=== PATIENT | male | born 2005 | race Caucasian/White ===

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

== ENCOUNTER → 2024-04-02 15:37 | Outpatient (BNVA) | payer BC, SELFPAY | PROVIDERS: Visit Provider Emergency Medicine | DX: I89.9 Noninfective disorder of lymphatic vessels and lymph nodes, unspecified; I88.9 Nonspecific lymphadenitis, unspecified | CPT/HCPCS: 85025; 85651; 86140; 86308 ==

== ENCOUNTER 2024-04-06 10:15 | Outpatient (CLI) | payer BC, MEDICAID, SELFPAY ==
--- NOTE | 2024-04-06 10:15 | USR_ITS ---
PROCEDURE INFORMATION: Exam: US Right Limited Joint or Other Non-Vascular Extremity Structure Exam date and time: 04/06/2024 10:24 AM Age: 19 years old Clinical indication: Lymphadenopathy; Not specified; Shoulder; Right; Additional info: Axillary adenopathy TECHNIQUE: Imaging protocol: US right limited joint or other nonvascular extremity structure. Real-time ultrasound with image documentation. Exam focused on the area of clinical interest. COMPARISON: No relevant prior studies available. FINDINGS: Soft tissues: There is an enlarged and heterogeneous appearing axillary lymph node measuring 2.5 cm in maximum dimension. The cortex is thickened and greater than 5 mm and the lymph node is abnormal. US/US soft tissue/extremity [id number] IMPRESSION: Abnormal right axillary lymph node. The findings may be due to either neoplastic or inflammatory disease.
== END 2024-04-06 10:18 | disposition home or self-care (01) ==
PROVIDERS: PCP Family Medicine; Visit Provider Emergency Medicine
DX: I88.9 Nonspecific lymphadenitis, unspecified (principal)
CPT/HCPCS: 76882

== ENCOUNTER → 2024-10-31 17:25 | Outpatient (BNVA) | payer BC, MEDICAID, SELFPAY | PROVIDERS: PCP Family Medicine; Visit Provider Registered Nurse Neonatal Intensive Care | DX: Z20.2 Contact with and (suspected) exposure to infections with a predominantly sexual mode of transmission (principal); R30.0 Dysuria | CPT/HCPCS: 81000; 87491; 87591 ==

== ENCOUNTER → 2024-11-22 14:43 | Outpatient (BNVA) | payer BC, SELFPAY | PROVIDERS: PCP Family Medicine; Visit Provider Nurse Practitioner | DX: Z20.2 Contact with and (suspected) exposure to infections with a predominantly sexual mode of transmission (principal) | CPT/HCPCS: 87491; 87591; 87661 ==

== ENCOUNTER 2024-12-26 05:22 | Inpatient (IN) | payer BC, MEDICAID, SELFPAY ==
[2024-12-26] VITALS (28 sets, daily range): BP systolic 92–143; BP diastolic 36–94; PULSE 50–102; RESP 10–31; TEMP 36.9–37.1; O2SAT 97–100; BMI 21.6
--- NOTE | 2024-12-26 05:38 | ECG_ITS ---
[facility] Test Date: 2024-12-26 Pat Name: Gurpreet Boogie Department: Room: Gender: Male Clinical Team Manager: : 2005 Requested By: Juan Fernandez Order Number: [id number] Louie MD: Spencer Malhotra M.D. Measurements Intervals [place] Rate: 81 P: 83 IA: 163 QRS: 83 QRSD: 87 T: 83 QT: 315 QTc: 366 Interpretive Statements SINUS RHYTHM WITH SINUS ARRHYTHMIA ST ELEVATION, PROBABLY EARLY REPOLARIZATION [ST ELEVATION WITH NORMALLY INFLECTED T-WAVE] Compared to ECG 07/28/2021 19:55:15 No significant change Electronically Signed On 12-26-2024 17:02:09 CDT by Spencer Malhotra M.D. [email or web address] [email or web address]
[2024-12-26 05:52] LABS: Add Urine Microscopic? NO
[2024-12-26 06:11] LABS: Hematocrit 46.1 % (37-53); Hemoglobin 15.30 g/dL (13.2-15.6); Mean Corpuscular HGB Conc 33.2 g/dL (30-55); Mean Corpuscular Hemoglobin 30.5 pg (27-33); Mean Corpuscular Volume 91.8 fl (82-101); Nucleated Red Blood Cells % 0 %; Platelet Count 167 10^3/cmm (157-399); Red Blood Count 5.02 10^6/uL (3.85-5.65); White Blood Count 8.07 10^3/uL (4.5-13.0)
--- NOTE | 2024-12-26 06:18 | W.ED.PSYCHS ---
Documented by User: Juan Esteves DO 12/26/24 16:31 HPI - Psych General: Chief Complaint: Psychiatric Symptoms Stated Complaint: SI, ETOH,OD Time Seen by Provider: 12/26/24 05:39 History of Present Illness: This 19-year-old male presents following an intentional overdose of what he believes is sertraline (Zoloft) that occurred at approximately 04:45 today. The actual medication bottle he showed EMS was valproic acid. The patient reports ingesting approximately 19-23 250mg tablets, estimating the number based on phone calls made during the incident. He describes the event as a relapse, indicating previous psychiatric episodes. The patient denies current nausea at the time of evaluation. He reports concurrent alcohol use, consuming what he describes as 'two Celsius' drinks. His last psychiatric hospitalization was when he was 11-12 years old, making this his first significant psychiatric episode in approximately 8-9 years. Related Data Previous Rx's ?Medication ?Instructions ?Recorded doxycycline hyclate 100 mg tablet 100 mg PO BID 7 days #14 tabs 11/22/24 Allergies Allergy/AdvReac Type Severity Reaction Status Date / Time risperidone Allergy Unknown Verified 11/22/24 13:24 [facility] ED PFS: Medical History (Updated 12/26/24 @ 10:50 by Sukhjinder Conde MD) Abnormal ultrasound No pertinent past medical history Family History Unknown Diabetes Cancer pancreatic and skin cancer Mother Breast cancer Grandfather Leukemia Social History Smoking and tobacco/nicotine status: never used tobacco/nicotine Substance/Drug Use: never Physical Exam Const: COMMON NORMALS: no acute distress GENERAL APPEARANCE: cooperative; not ill appearing and not frail appearing HENMT: COMMON NORMALS: normocephalic, atraumatic and Normal external nose present HEAD & SCALP: normocephalic and atraumatic FACE & SINUS: normal facial exam and face symmetric NOSE: Normal external nose present Eye: COMMON NORMALS: EOMs intact bilaterally and conjunctivae normal CONJUNCTIVA: Yes conjunctivae normal Neck/C-Spine: GENERAL: Yes trachea midline Chest: CHEST: Yes Symmetrical chest wall rise Resp: COMMON NORMALS: normal respiratory effort, No retractions, No use of accessory muscles and clear to auscultation bilaterally AUSCULTATION: clear to auscultation bilaterally Cardio: COMMON NORMALS: regular rate and regular rhythm RATE: regular rate RHYTHM: regular rhythm GI: COMMON NORMALS: Normal to inspection, nondistended, normoactive bowel sounds present Extremity: COMMON NORMALS: no pedal edema Neuro: JOANNA COMA SCALE: document GCS findings Joanna coma scale eye opening: Spontaneous Joanna coma scale verbal response: Orientated Joanna coma scale motor response: Obey commands [place] coma scale total score: 15 SENSORY EXAM: Yes extremities (intact) Psych: COMMON NORMALS: speech normal SPEECH: Yes normal speech Skin: COMMON NORMALS: no rashes or lesions noted GENERAL SKIN EXAM: no rashes or lesions noted Course Vital Signs: Vital signs: Vital Signs Temperature 98.8 F 12/26/24 05:39 Pulse Rate 50 L 12/26/24 15:14 Respiratory Rate 14 12/26/24 14:15 Blood Pressure 120/84 12/26/24 14:06 Pulse Oximetry 100 12/26/24 14:15 Oxygen Delivery Me thod Room Air 12/26/24 14:00 MDM - Psych Medical Decision Making Patient appears medically stable now. His vitals are normal heart rate 84, blood pressure 139/85 saturation 98% with 18 respiratory rate on room air. He is not lethargic. He is awake and talking. Laboratory is pending. He will be checked out to Dr. Cardozo at shift change Lab Data 12/26/24 06:01 12/26/24 06:01 Laboratory Results WBC 8.07 10^3/uL (4.5-13.0) 12/26/24 06:01 RBC 5.02 10^6/uL (3.85-5.65) 12/26/24 06:01 Hgb 15.30 g/dL (13.2-15.6) 12/26/24 06:01 Hct 46.1 % (37-53) 12/26/24 06:01 MCV 91.8 fl (82-101) 12/26/24 06:01 MCH 30.5 pg (27-33) 12/26/24 06:01 MCHC 33.2 g/dL (30-55) 12/26/24 06:01 RDW 12.1 % (12.1-15.1) 12/26/24 06:01 Plt Count 167 10^3/cmm (157-399) 12/26/24 06:01 MPV 10.5 fL (7.4-10.4) H 12/26/24 06:01 Neut % (Auto) 70.7 % 12/26/24 06:01 Lymph % (Auto) 22.3 % 12/26/24 06:01 [place] % (Auto) 6.1 % 12/26/24 06:01 Eos % (Auto) 0.5 % 12/26/24 06:01 Baso % (Auto) 0.2 % 12/26/24 06:01 Neut # (Auto) 5.70 10^3/uL (1.8-8.0) 12/26/24 06:01 Lymph # (Auto) 1.8 10^3/uL (1.5-6.5) 12/26/24 06:01 [place] # (Auto) 0.5 10^3/uL (0.2-0.9) 12/26/24 06:01 Eos # (Auto) 0.0 10^3/uL (0.0-0.8) 12/26/24 06:01 Baso # (Auto) 0.0 10^3/uL (0.0-0.1) 12/26/24 06:01 Nucleated RBC % (auto) 0 % 12/26/24 06:01 Nucleated RBCs # 0.0 /100WBC 12/26/24 06:01 Sodium 142 mmol/L (136-145) 12/26/24 06:01 Potassium 4.2 mmol/L (3.5-5.1) 12/26/24 06:01 Chloride 104 mmol/L (98-107) 12/26/24 06:01 Carbon Dioxide 26 mmol/L (22-29) 12/26/24 06:01 Anion Gap 16.2 (5-19) 12/26/24 06:01 BUN 9 mg/dL (6-20) 12/26/24 06:01 Creatinine 0.7 mg/dL (0.7-1.2) 12/26/24 06:01 GFR Calculation 143.8 mL/min (90-130) H 12/26/24 06:01 Glucose 90 mg/dL (65-115) 12/26/24 06:01 Calculated Osmolality 292 mOsm/kg (285-295) 12/26/24 06:01 Calcium 9.5 mg/dL (8.5-10.5) 12/26/24 06:01 Total Bilirubin 0.3 mg/dL (0.15-1.2) 12/26/24 06:01 AST 12 U/L (0-40) 12/26/24 06:01 ALT 11 U/L (0-41) 12/26/24 06:01 Alkaline Phosphatase 74 U/L (40-130) 12/26/24 06:01 Ammonia 30 umol/L (16-60) 12/26/24 06:01 NT-Pro-B Natriuret Pep < 36 pg/mL (0-125) 12/26/24 06:01 Total Protein 6.9 g/dL (6.6-8.7) 12/26/24 06:01 Albumin 4.8 g/dL (3.5-5.2) 12/26/24 06:01 Globulin 2.1 g/dL (1.3-4.6) 12/26/24 06:01 TSH 1.65 uIU/mL (0.27-4.20) 12/26/24 06:01 Urine Color Yellow (Yellow) 12/26/24 05:35 Urine Appearance Clear (CLEAR) 12/26/24 05:35 Urine pH 6.5 (5-7) 12/26/24 05:35 Ur Specific [place] 1.005 (1.005-1.030) 12/26/24 05:35 Urine Protein Negative (Negative) 12/26/24 05:35 Urine Glucose (UA) Negative (Normal) 12/26/24 05:35 Urine Ketones Negative (Negative) 12/26/24 05:35 Urine Blood Negative (Negative) 12/26/24 05:35 Urine Nitrate Negative (Negative) 12/26/24 05:35 Urine Bilirubin Negative (Negative) 12/26/24 05:35 Urine Urobilinogen 0.2 mg/dL (Negative) 12/26/24 05:35 Ur Leukocyte Esterase Negative (Negative) 12/26/24 05:35 Amorphous Sediment Not Reportable 12/26/24 05:35 Salicylates < 0.3 mg/dL (3-10) L 12/26/24 06:01 Urine Opiates Screen Negative ng/mL (Negative) 12/26/24 05:35 Acetaminophen < 5.0 ug/mL (10-30) L 12/26/24 06:01 Ur Barbiturates Screen Negative ng/mL (Negative) 12/26/24 05:35 Valproic Acid 46.8 ug/mL (50-100) L 12/26/24 06:01 Ur Phencyclidine Scrn Negative ng/mL (Negative) 12/26/24 05:35 Ur Amphetamines Screen Negative ng/mL (Negative) 12/26/24 05:35 U Benzodiazepines Scrn Negative ng/mL (Negative) 12/26/24 05:35 Urine Cocaine Screen Negative ng/mL (Negative) 12/26/24 05:35 U Marijuana (THC) Screen Negative ng/mL (Negative) 12/26/24 05:35 Ethyl Alcohol < 10 mg/dL (0-10) 12/26/24 06:01 Discharge Plan Discharge Patient Disposition: Admitted As Inpatient Admit Provider: Sukhjinder Conde Clinical Impression: Intentional overdose, Suicide attempt Condition: Stable Coding Level of Care Code ED Radiosonde Operator for Chg Fwd Documented by User: Isidoro Cardozo MD 12/26/24 07:57 HPI - Psych General: Chief Complaint: Psychiatric Symptoms Stated Complaint: SI, ETOH,OD Time Seen by Provider: 12/26/24 05:39 Related Data Previous Rx's ?Medication ?Instructions ?Recorded doxycycline hyclate 100 mg tablet 100 mg PO BID 7 days #14 tabs 11/22/24 Allergies Allergy/AdvReac Type Severity Reaction Status Date / Time risperidone Allergy Unknown Verified 11/22/24 13:24 PFS ED PFSH: Medical History (Updated 12/26/24 @ 10:50 by Sukhjinder Conde MD) Abnormal ultrasound No pertinent past medical history Family History Unknown Diabetes Cancer pancreatic and skin cancer Mother Breast cancer Grandfather Leukemia Social History Smoking and tobacco/nicotine status: never used tobacco/nicotine Substance/Drug Use: never Physical Exam Neuro: JOANNA COMA SCALE: document GCS findings Joanna coma scale total score: 15 Course Vital Signs: Vital signs: Vital Signs Temperature 98.8 F 12/26/24 05:39 Pulse Rate 50 L 12/26/24 15:14 Respiratory Rate 14 12/26/24 14:15 Blood Pressure 120/84 12/26/24 14:06 Pulse Oximetry 100 12/26/24 14:15 Oxygen Delivery Me thod Room Air 12/26/24 14:00 MDM - Psych Medical Decision Making Patient appears medically stable now. His vitals are normal heart rate 84, blood pressure 139/85 saturation 98% with 18 respiratory rate on room air. He is not lethargic. He is awake and talking. Laboratory is pending. He will be checked out to Dr. Cardozo at shift change Patient seen by myself at time of transfer of care. Patient sitting up in the bed alert cooperative calm. No external signs of trauma. Right pupil is larger than his left pupil. He tells me he has a lazy eye and that that is normal for him. He denies any head trauma or headache or change in vision. Denies any chest pain abdominal pain shortness of breath. He states he feels fine. He states that he made a suicide attempt this morning. He tells me that he overdosed at 4:00 in the morning on his Zoloft and states he took 19 pills. According to EMS the patient had an empty bottle of valproic acid. The patient states he is prescribed valproic acid. Unknown if this is extended release or immediate release. Patient denies any symptoms other than his depression and anxiety and suicidal ideation. Denies history of heart problems. He is breathing comfortably, abdomen soft nontender extremities warm well-perfused. His speech is clear. He does not appear sedate. I discussed with poison control again. Peak effect of valproic acid can be significantly prolonged with overdose and can be up to greater than 30 hours and duration of observation guided by valproic acid levels and can cause hyperammonia anemia, seizures, tachycardia, QT prolongation, among other symptoms. There is Zoloft PCOS 4 to 8 hours and can cause QT prolongation as well and seizures among others. EKG was ordered which shows a sinus rhythm with a rate of [address] elevation diffusely which appears more consistent with J-point elevation and patient denies any chest pain chest discomfort or history of heart disease to suggest acute NV. QT corrected is 352 and QRS is 87. Further labs are pending. Alcohol and acetaminophen and salicylate levels are not significant elevated. Valproic acid level is just less than 50. Urine drug screen is negative. Patient appears mildly sleepy but otherwise unremarkable exam. He responds to voice appropriately and interacts appropriately. Because of potential prolonged effects of valproic acid as well as Zoloft we will admit medically for further observation to the ICU. I discussed with Dr. Conde who accepts the patient and I discussed with Dr. Araiza who will consult. Lab Data 12/26/24 06:01 12/26/24 06:01 Laboratory Results WBC 8.07 10^3/uL (4.5-13.0) 12/26/24 06:01 RBC 5.02 10^6/uL (3.85-5.65) 12/26/24 06:01 Hgb 15.30 g/dL (13.2-15.6) 12/26/24 06:01 Hct 46.1 % (37-53) 12/26/24 06:01 MCV 91.8 fl (82-101) 12/26/24 06:01 MCH 30.5 pg (27-33) 12/26/24 06:01 MCHC 33.2 g/dL (30-55) 12/26/24 06:01 RDW 12.1 % (12.1-15.1) 12/26/24 06:01 Plt Count 167 10^3/cmm (157-399) 12/26/24 06:01 MPV 10.5 fL (7.4-10.4) H 12/26/24 06:01 Neut % (Auto) 70.7 % 12/26/24 06:01 Lymph % (Auto) 22.3 % 12/26/24 06:01 [place] % (Auto) 6.1 % 12/26/24 06:01 Eos % (Auto) 0.5 % 12/26/24 06:01 Baso % (Auto) 0.2 % 12/26/24 06:01 Neut # (Auto) 5.70 10^3/uL (1.8-8.0) 12/26/24 06:01 Lymph # (Auto) 1.8 10^3/uL (1.5-6.5) 12/26/24 06:01 [place] # (Auto) 0.5 10^3/uL (0.2-0.9) 12/26/24 06:01 Eos # (Auto) 0.0 10^3/uL (0.0-0.8) 12/26/24 06:01 Baso # (Auto) 0.0 10^3/uL (0.0-0.1) 12/26/24 06:01 Nucleated RBC % (auto) 0 % 12/26/24 06:01 Nucleated RBCs # 0.0 /100WBC 12/26/24 06:01 Sodium 142 mmol/L (136-145) 12/26/24 06:01 Potassium 4.2 mmol/L (3.5-5.1) 12/26/24 06:01 Chloride 104 mmol/L (98-107) 12/26/24 06:01 Carbon Dioxide 26 mmol/L (22-29) 12/26/24 06:01 Anion Gap 16.2 (5-19) 12/26/24 06:01 BUN 9 mg/dL (6-20) 12/26/24 06:01 Creatinine 0.7 mg/dL (0.7-1.2) 12/26/24 06:01 GFR Calculation 143.8 mL/min (90-130) H 12/26/24 06:01 Glucose 90 mg/dL (65-115) 12/26/24 06:01 Calculated Osmolality 292 mOsm/kg (285-295) 12/26/24 06:01 Calcium 9.5 mg/dL (8.5-10.5) 12/26/24 06:01 Total Bilirubin 0.3 mg/dL (0.15-1.2) 12/26/24 06:01 AST 12 U/L (0-40) 12/26/24 06:01 ALT 11 U/L (0-41) 12/26/24 06:01 Alkaline Phosphatase 74 U/L (40-130) 12/26/24 06:01 Ammonia 30 umol/L (16-60) 12/26/24 06:01 NT-Pro-B Natriuret Pep < 36 pg/mL (0-125) 12/26/24 06:01 Total Protein 6.9 g/dL (6.6-8.7) 12/26/24 06:01 Albumin 4.8 g/dL (3.5-5.2) 12/26/24 06:01 Globulin 2.1 g/dL (1.3-4.6) 12/26/24 06:01 TSH 1.65 uIU/mL (0.27-4.20) 12/26/24 06:01 Urine Color Yellow (Yellow) 12/26/24 05:35 Urine Appearance Clear (CLEAR) 12/26/24 05:35 Urine pH 6.5 (5-7) 12/26/24 05:35 Ur Specific [place] 1.005 (1.005-1.030) 12/26/24 05:35 Urine Protein Negative (Negative) 12/26/24 05:35 Urine Glucose (UA) Negative (Normal) 12/26/24 05:35 Urine Ketones Negative (Negative) 12/26/24 05:35 Urine Blood Negative (Negative) 12/26/24 05:35 Urine Nitrate Negative (Negative) 12/26/24 05:35 Urine Bilirubin Negative (Negative) 12/26/24 05:35 Urine Urobilinogen 0.2 mg/dL (Negative) 12/26/24 05:35 Ur Leukocyte Esterase Negative (Negative) 12/26/24 05:35 Amorphous Sediment Not Reportable 12/26/24 05:35 Salicylates < 0.3 mg/dL (3-10) L 12/26/24 06:01 Urine Opiates Screen Negative ng/mL (Negative) 12/26/24 05:35 Acetaminophen < 5.0 ug/mL (10-30) L 12/26/24 06:01 Ur Barbiturates Screen Negative ng/mL (Negative) 12/26/24 05:35 Valproic Acid 46.8 ug/mL (50-100) L 12/26/24 06:01 Ur Phencyclidine Scrn Negative ng/mL (Negative) 12/26/24 05:35 Ur Amphetamines Screen Negative ng/mL (Negative) 12/26/24 05:35 U Benzodiazepines Scrn Negative ng/mL (Negative) 12/26/24 05:35 Urine Cocaine Screen Negative ng/mL (Negative) 12/26/24 05:35 U Marijuana (THC) Screen Negative ng/mL (Negative) 12/26/24 05:35 Ethyl Alcohol < 10 mg/dL (0-10) 12/26/24 06:01 No radiology studies performed this visit Discharge Plan Discharge Patient Disposition: Admitted As Inpatient Admit Provider: Sukhjinder Conde Clinical Impression: Intentional overdose, Suicide attempt Condition: Stable Coding Level of Care Code ED Radiosonde Operator for Joanna Padron
[2024-12-26 06:26] LABS: Ammonia 30 umol/L (16-60)
[2024-12-26 06:26] LABS: Glucose Urine UA Negative (Normal); Nitrate Urine Negative (Negative); Specific Gravity, Urine 1.005 (1.005-1.030)
[2024-12-26 06:33] LABS: PCP Screen Urine Negative (Negative)
--- NOTE | 2024-12-26 06:39 | PC.NURSE ---
patients contact numbers Kalia Dillard Y - [phone] P [phone] [facility] [phone]
[2024-12-26 06:53] LABS: Charge for UA Resulting for Rev
--- NOTE | 2024-12-26 07:09 | PC.NURSE ---
PT REQUESTED THIS NURSE TO CALL HIS EMERGENCY CONTACT AT 0700 TO UPDATE HER ON WHAT HAPPENED. THIS NURSE ATTEMPTED TO CALL HIS MOTHER. NO ANSWER. PT NOTIFIED.
[2024-12-26 07:44] LABS: Alanine Aminotransferase 11 U/L (0-41); Albumin Level 4.8 g/dL (3.5-5.2); Alkaline Phosphatase 74 U/L (40-130); Anion Gap 16.2 (5-19); Aspartate Amino Transferase 12 U/L (0-40); Blood Urea Nitrogen 9 mg/dL (6-20); Calcium 9.5 mg/dL (8.5-10.5); Carbon Dioxide 26 mmol/L (22-29); Chloride 104 mmol/L (98-107); Globulin 2.1 g/dL (1.3-4.6); Glucose 90 mg/dL (65-115); Osmolality Calculated 292 mOsm/kg (285-295); Potassium 4.2 mmol/L (3.5-5.1); Sodium 142 mmol/L (136-145); Thyroid Stimulating Hormone 1.65 uIU/mL (0.27-4.20); Total Protein 6.9 g/dL (6.6-8.7)
[2024-12-26 07:50] LABS: Acetaminophen < 5.0 ug/mL (10-30); Alcohol Level < 10 mg/dL (0-10); Salicylate < 0.3 mg/dL (3-10)
[2024-12-26 07:51] LABS: Creatinine Clr Calc Pharmacy 174.5305
--- NOTE | 2024-12-26 07:53 | PC.NURSE ---
POISON CONTROLLED UPDATED. SERIAL VALPROIC ACID SUGGESTED EVERY 4-6 HOURS.
--- NOTE | 2024-12-26 08:03 | ECG_ITS ---
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 Measurements Intervals [place] Rate: 58 P: 48 [place]: 143 QRS: 72 QRSD: 96 T: 63 QT: 362 QTc: 356 Interpretive Statements SINUS BRADYCARDIA EARLY REPOLARIZATION [ST ELEVATION WITH NORMALLY INFLECTED T-WAVE] Compared to ECG 12/26/2024 05:54:23 Sinus arrhythmia no longer present Electronically Signed On 12-26-2024 17:03:36 CDT by Spencer Malhotra M.D. [id number] [id number]
--- NOTE | 2024-12-26 10:34 | P.HP_ITS ---
Providers/Chief Complaint 2 Admitting Physician: Sukhjinder Conde MD Primary Care Provider: Kevin Ornelas MD Chief Complaint: SI, ETOH,OD History of Present Illness Gurpreet Boogie is a 19 year old male with past medical history of seizure, depression, onset, valproic acid, who presents for intentional drug overdose, suicide attempt. Currently patient is alert oriented x 3, can follow commands, but falls back during our conversations, he does report alcohol use, does report consuming Celsius, denies any other drug use, does report attempt to kill himself by taking a valproic acid, sertraline, but does not know how many he took he is not even exactly sure if he took them or not, denies taking any other medications, he lives at home with his 2 parents, Review of Systems 2 Const: Denies: fever(s) Card: Denies: chest pain Resp: Denies: dyspnea GI: Denies: abdominal pain Neuro: Denies: headache(s) Medications/Allergies Home Medications ?Medication ?Instructions ?Recorded ?Confirmed ?Last Taken ?Type doxycycline hyclate 100 mg tablet 100 mg PO BID 7 days #14 tabs 11/22/24 11/22/24 Unknown Rx Allergies Allergy/AdvReac Type Severity Reaction Status Date / Time risperidone Allergy Unknown Verified 11/22/24 13:24 PFSH Acute 2 PFSH: Medical History Abnormal ultrasound No pertinent past medical history Family History Unknown Diabetes Cancer pancreatic and skin cancer Mother Breast cancer Grandfather Leukemia Social History Smoking and tobacco/nicotine status: never used tobacco/nicotine Substance/Drug Use: never Vitals/I&O/Wt Last Vital Signs Temp 98.8 F 12/26/24 05:39 Pulse 57 L 12/26/24 09:30 Resp 16 12/26/24 08:30 BP 106/68 12/26/24 09:30 Pulse Ox 97 12/26/24 09:30 O2 Del Method Room Air 12/26/24 09:30 12/25/24 12/26/24 12/26/24 22:59 06:59 14:59 Intake Total 1000 / 1000 Balance 1000 / 1000 Weight last 48 hrs Weight 70.307 kg Physical Exam 2 Const: COMMON NORMALS: no acute distress ORIENTATION/CONSCIOUSNESS: Yes awake, Yes oriented to person, Yes oriented to place and Yes oriented to time HENMT: COMMON NORMALS: normocephalic HEAD & SCALP: normocephalic Eye: COMMON NORMALS: Equal, round and reactive pupils present Neck/C-Spine: COMMON NORMALS: no JVD Lymph: LYMPHATIC: no lymphadenopathy noted Resp: COMMON NORMALS: normal respiratory effort, No retractions, No use of accessory muscles and clear to auscultation bilaterally AUSCULTATION: clear to auscultation bilaterally Cardio: COMMON NORMALS: no JVD, regular rate, regular rhythm, S1 normal heart sound present and S2 normal heart sound present RATE: regular rate RHYTHM: regular rhythm HEART SOUNDS: S1 normal heart sound present and S2 normal heart sound present GI: COMMON NORMALS: Normal to inspection, nondistended, normoactive bowel sounds present, Soft to palpation and non-tender Extremity: COMMON NORMALS: no calf tenderness and no pedal edema Neuro: COMMON NORMALS: patient oriented x3, CN's II-XII intact bilaterally and moves all extremities Psych: COMMON NORMALS: mental status grossly normal Data 12/26/24 06:01 12/26/24 06:01 A&P Assessment and plan 1. Intentional overdose: 2. Suicide attempt: 3. Poisoning by valproic acid: Plan: Intentional drug overdose, suicide attempt - Sertraline -Depakote - Denies seeing or hearing things are not there - Denies any other drug use - Does report using Celsius drinks -Does report alcohol consumption Plan - Monitor ammonia levels - Monitor Depakote levels - Monitor EKG - Advance to clears - Telemetry monitoring - Monitor neurologic status closely - 96-hour hold ordered by ER - ER will contact Dr. Araiza - Once clinically stable can move to n.p.u - Full code - Lovenox for DVT prophylaxis PDMP PDMP Reviewed: Not Reviewed Attestations 2 Medical Necessity Statement*: Patient requires hospitalization, inpatient, greater than 2 midnights, intentional drug overdose, suicide attempt Diagnoses Intentional overdose T50.902A Suicide attempt T14.91XA Poisoning by valproic acid T42.6X1A
[2024-12-26 11:05] LABS: NT Pro B Type Natriuretic Pept < 36 pg/mL (0-125)
--- NOTE | 2024-12-26 11:09 | PC.PHAR ---
I spoke to [facility] and Patient has had a Doxycline called in on November 22 and Patient did not pick it up. Last RX for 250 Divelaprex was picked up August 06 #30 for a 30 days supply . Patient also picked up Trazadone 50 , 30 days supply on the same date . No other Pharmacies were listed. Will try adn speak to Patient when he wakes up and is able to speak to me.
--- NOTE | 2024-12-26 14:05 | PC.NURSE ---
96 hr rights reviewed with pt @0800 with assistance of [facility] radiological defense officer Robb Lerma All education reviewed with pt at this time. Pt verbalized understanding to hold parameters. Pt copy was left with pt @bedside. Pt declined wanting a beverage when asked. No further needs
[2024-12-26 15:01] LABS: Ammonia 42 umol/L (16-60)
[2024-12-26 15:07] LABS: Cholesterol 108 mg/dL (0-200); HDL Cholesterol 27 mg/dL (60-100); Thyroid Stimulating Hormone 0.99 uIU/mL (0.27-4.20); Triglycerides 36 mg/dL (0-150)
--- NOTE | 2024-12-26 15:10 | ECG_ITS ---
[facility] Test Date: 2024-12-26 Pat Name: Gurpreet Boogie Department: Room: [facility]02 Gender: Male Director Case: : 2005 Requested By: Sukhjinder Conde Order Number: [id number] Louie MD: Spencer Malhotra M.D. Measurements Intervals [place] Rate: 51 P: 52 NE: 150 QRS: 72 QRSD: 98 T: 63 QT: 383 QTc: 353 Interpretive Statements SINUS BRADYCARDIA WITH SINUS ARRHYTHMIA EARLY REPOLARIZATION [ST ELEVATION WITH NORMALLY INFLECTED T-WAVE] Compared to ECG 12/26/2024 08:03:30 No significant changes Electronically Signed On 12-26-2024 18:09:26 CDT by Spencer Malhotra M.D. [email or web address] [id number]
[2024-12-26 15:27] LABS: Estmated Average Glucose 91; Hemoglobin A1C 4.8 % (4.0-6.0)
[2024-12-26 20:02] LABS: Ammonia 180 umol/L (16-60)
--- NOTE | 2024-12-26 20:15 | ECG_ITS ---
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 Measurements Intervals [place] Rate: 65 P: 61 [place]: 162 QRS: 72 QRSD: 89 T: 64 QT: 356 QTc: 371 Interpretive Statements SINUS RHYTHM WITH SINUS ARRHYTHMIA EARLY REPOLARIZATION [ST ELEVATION WITH NORMALLY INFLECTED T-WAVE] Compared to ECG 12/26/2024 15:10:41 Sinus bradycardia no longer present Electronically Signed On 12-27-2024 13:47:13 CDT by Spencer Malhotra M.D. [id number] [id number]
--- NOTE | 2024-12-26 23:12 | PC.NURSE ---
Poison control called for update on pt status/current vitals signs. Poison control recommendation is to continue with Q6H ammonia levels and valproic acid levels.
[2024-12-27] VITALS (24 sets, daily range): BP systolic 95–145; BP diastolic 54–85; PULSE 56–81; RESP 12–22; TEMP 36.3–37.1; O2SAT 91–100
--- NOTE | 2024-12-27 02:28 | ECG_ITS ---
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 Measurements Intervals [place] Rate: 64 P: 47 [place]: 144 QRS: 69 QRSD: 87 T: 69 QT: 369 QTc: 381 Interpretive Statements SINUS RHYTHM EARLY REPOLARIZATION [ST ELEVATION WITH NORMALLY INFLECTED T-WAVE] Compared to ECG 12/26/2024 20:24:41 Sinus arrhythmia no longer present Electronically Signed On 01-01-2025 09:52:13 CDT by Conor Dickey M.D. [id number] [id number]
[2024-12-27 02:59] LABS: Ammonia 50 umol/L (16-60)
[2024-12-27 04:22] LABS: Hematocrit 44.5 % (37-53); Hemoglobin 14.50 g/dL (13.2-15.6); Mean Corpuscular HGB Conc 32.6 g/dL (30-55); Mean Corpuscular Hemoglobin 30.4 pg (27-33); Mean Corpuscular Volume 93.3 fl (82-101); Nucleated Red Blood Cells % 0 %; Platelet Count 163 10^3/cmm (157-399); Red Blood Count 4.77 10^6/uL (3.85-5.65); White Blood Count 6.82 10^3/uL (4.5-13.0)
[2024-12-27 04:41] LABS: Alanine Aminotransferase 9 U/L (0-41); Albumin Level 4.2 g/dL (3.5-5.2); Alkaline Phosphatase 61 U/L (40-130); Anion Gap 10.6 (5-19); Aspartate Amino Transferase 9 U/L (0-40); Blood Urea Nitrogen 8 mg/dL (6-20); Calcium 9.0 mg/dL (8.5-10.5); Carbon Dioxide 26 mmol/L (22-29); Chloride 103 mmol/L (98-107); Creatinine Clr Calc Pharmacy 174.5305; Globulin 2.1 g/dL (1.3-4.6); Glucose 87 mg/dL (65-115); Magnesium 2.1 mg/dL (1.7-2.3); Osmolality Calculated 278 mOsm/kg (285-295); Potassium 4.6 mmol/L (3.5-5.1); Sodium 135 mmol/L (136-145); Total Protein 6.3 g/dL (6.6-8.7)
--- NOTE | 2024-12-27 08:15 | ECG_ITS ---
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 Measurements Intervals [place] Rate: 56 P: 50 [place]: 150 QRS: 70 QRSD: 95 T: 60 QT: 371 QTc: 361 Interpretive Statements SINUS BRADYCARDIA EARLY REPOLARIZATION [ST ELEVATION WITH NORMALLY INFLECTED T-WAVE] Compared to ECG 12/27/2024 02:28:12 Sinus rhythm no longer present Electronically Signed On 01-01-2025 09:51:17 CDT by Conor Dickey M.D. [id number]
[2024-12-27 08:30] LABS: Ammonia 71 umol/L (16-60)
--- NOTE | 2024-12-27 12:28 | P.PN_ITS ---
Subjective 2 Subjective: Chart reviewed. Patient denies any new complaints today. He is awake alert oriented x 3. Has been able to urinate. Following all commands. Valproic level at 40 today. Ammonia level at 71, down from 180 Medications: Reviewed: Yes Vitals/I&O/Wt Last Vital Signs Temp 97.4 F L 12/27/24 10:33 Pulse 77 12/27/24 10:33 Resp 16 12/27/24 10:33 BP 145/85 12/27/24 10:33 Pulse Ox 100 12/27/24 10:33 O2 Del Method Room Air 12/27/24 10:35 12/26/24 12/27/24 12/27/24 22:59 06:59 14:59 Intake Total 1490 / 1490 / 1969 1240 / 1240 Balance 1490 / 1490 / 1969 1240 / 1240 Weight last 48 hrs Weight 70.307 kg Physical Exam 2 Narrative: General: No acute distress, AO x3 HEENT: PERRLA, pupils bilaterally equal and reactive, pallors not present Chest: Normal vesicular breath sounds, no added sounds, equal good air entry bilaterally CVS: S1-S2 regular, no murmurs, no tachycardia, no gallops, no rubs Abdomen: Soft, nontender, no organomegaly, bowel sounds present Neuro: No focal deficits, no facial deformity, AO x3, power 5/5 in all limbs, no asterexis Data 12/27/24 03:58 12/27/24 03:58 A&P Assessment and plan 1. Intentional overdose: 2. Suicide attempt: 3. Poisoning by valproic acid: Plan: Intentional drug overdose, suicide attempt - Sertraline -Depakote - Denies seeing or hearing things are not there - Denies any other drug use - Does report using Celsius drinks -Does report alcohol consumption Plan - Monitor ammonia levels - Monitor Depakote levels - Monitor EKG - Advance to clears - Telemetry monitoring - Monitor neurologic status closely - 96-hour hold ordered by ER - ER will contact Dr. Araiza - Once clinically stable can move to n.p.u - Full code - Lovenox for DVT prophylaxis December 27, 2024 Chart reviewed. Patient denies any new complaints. Denies any chest pain dyspnea palpitations syncope. No focal deficits on neurological exam. Maintaining hemodynamics. Normal blood pressure and pulse rate. Valproic level at 40 today. Ammonia level at 71, down from 150 previously. Will add lactulose 10 mg p.o. twice daily to be titrated to 2-3 bowel movements per day. Check ammonia with a.m. labs. Patient stable to be transferred from ICU to neuro psychiatric unit PDMP PDMP Reviewed: Not Reviewed Attestations 2 Medical Necessity Statement*: Patient stable for transfer to neuro psychiatry unit today Coding Level of Care Code Acute Code for Chg Fwd Moderate MDM includes number and complexity of problems actively addressed during encounter, amount and/or complexity of data reviewed/ordered and described risk of complication, morbidity or mortality of management as documented Diagnoses Intentional overdose T50.902A Suicide attempt T14.91XA Poisoning by valproic acid T42.6X1A
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
[2024-12-27] MEDS: lactulose oral liq 20 gm/30 mL UDC 10 GM PO (22:04)
[2024-12-27] MEDS: divalproex Sprinkles 125 mg Capsule PO (22:05)
[2024-12-28 06:00] VITALS: BP 117/76; PULSE 73; RESP 17; TEMP 37; O2SAT 99
[2024-12-28 08:58] LABS: Alanine Aminotransferase 9 U/L (0-41); Albumin Level 4.8 g/dL (3.5-5.2); Alkaline Phosphatase 76 U/L (40-130); Anion Gap 15.0 (5-19); Aspartate Amino Transferase 11 U/L (0-40); Blood Urea Nitrogen 8 mg/dL (6-20); Calcium 9.4 mg/dL (8.5-10.5); Carbon Dioxide 28 mmol/L (22-29); Chloride 100 mmol/L (98-107); Creatinine Clr Calc Pharmacy 203.6189; Globulin 2.4 g/dL (1.3-4.6); Glucose 76 mg/dL (65-115); Osmolality Calculated 285 mOsm/kg (285-295); Potassium 4.0 mmol/L (3.5-5.1); Sodium 139 mmol/L (136-145); Total Protein 7.2 g/dL (6.6-8.7)
[2024-12-28 08:59] LABS: Ammonia 33 umol/L (16-60)
[2024-12-28 14:00] VITALS: BP 143/95; PULSE 93; RESP 18; TEMP 37.3; O2SAT 95
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
[2024-12-28 19:57] VITALS: BP 140/85; PULSE 85; RESP 18; TEMP 37.1; O2SAT 99
[2024-12-28] MEDS: lactulose oral liq 20 gm/30 mL UDC 10 GM PO (20:13)
[2024-12-28] MEDS: divalproex Sprinkles 125 mg Capsule PO (20:14)
--- NOTE | 2024-12-29 01:59 | PC.NURSE ---
pt personal items pt would like a privilege order for personal hygiene products.
--- NOTE | 2024-12-29 05:24 | PC.NURSE ---
SLEEP PATIENT WAS AWAKE TIL AFTER MIDNIGHT CONVERSING WITH HIS ROOMMATE. BOTH WENT TO SLEEP SHORTLY AFTER.
[2024-12-29 06:00] VITALS: RESP 16
[2024-12-29 08:12] LABS: Alanine Aminotransferase 10 U/L (0-41); Albumin Level 4.8 g/dL (3.5-5.2); Alkaline Phosphatase 75 U/L (40-130); Anion Gap 13.1 (5-19); Aspartate Amino Transferase 12 U/L (0-40); Blood Urea Nitrogen 8 mg/dL (6-20); Calcium 9.3 mg/dL (8.5-10.5); Carbon Dioxide 30 mmol/L (22-29); Chloride 102 mmol/L (98-107); Creatinine Clr Calc Pharmacy 174.5305; Globulin 2.3 g/dL (1.3-4.6); Glucose 90 mg/dL (65-115); Osmolality Calculated 290 mOsm/kg (285-295); Potassium 4.1 mmol/L (3.5-5.1); Sodium 141 mmol/L (136-145); Total Protein 7.1 g/dL (6.6-8.7)
[2024-12-29] MEDS: lactulose oral liq 20 gm/30 mL UDC 10 GM PO ×2 (10:12→21:57)
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
[2024-12-29 14:00] VITALS: BP 152/75; PULSE 86; RESP 17; TEMP 36.7; O2SAT 99
[2024-12-29 19:35] VITALS: BP 144/93; PULSE 83; RESP 18; TEMP 36.8; O2SAT 97
[2024-12-29] MEDS: divalproex Sprinkles 125 mg Capsule PO (20:35)
--- NOTE | 2024-12-30 03:43 | PC.NURSE ---
PATIENTS PRIVILEGES Per Dr Araiza, pt may wear his lock cap during the day and hand it back at night. Pts lock cap is located in his belongings
[2024-12-30 06:00] VITALS: RESP 16
[2024-12-30] MEDS: lactulose oral liq 20 gm/30 mL UDC 10 GM PO (11:00)
[2024-12-30 13:54] VITALS: BP 142/92; PULSE 81; RESP 16; TEMP 37.1; O2SAT 98
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
--- NOTE | 2024-12-30 19:19 | PC.NURSE ---
12/30/24 1100 Ns staff had to remind Gurpreet et another female patient that they were standing et socializing too close to one another. Another staff member reported mentioning it at group as well.
[2024-12-30 20:25] VITALS: BP 119/82; PULSE 76; RESP 18; TEMP 36.9; O2SAT 100
[2024-12-30] MEDS: divalproex Sprinkles 125 mg Capsule PO (20:31)
[2024-12-31 06:00] VITALS: BP 115/79; PULSE 73; RESP 17; TEMP 36.6; O2SAT 99
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
[2024-12-31 14:00] VITALS: BP 129/88; PULSE 82; RESP 16; TEMP 36.3; O2SAT 97
[2024-12-31] MEDS: divalproex Sprinkles 125 mg Capsule PO (20:07)
[2024-12-31 20:11] VITALS: BP 135/89; PULSE 68; RESP 20; TEMP 36.6; O2SAT 98
[2025-01-01 14:00] VITALS: BP 114/70; PULSE 66; RESP 16; TEMP 36.8; O2SAT 99
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
[2025-01-01 19:59] VITALS: RESP 18
--- NOTE | 2025-01-01 19:59 | PC.NURSE ---
Patient refused nurse notified
[2025-01-01] MEDS: divalproex Sprinkles 125 mg Capsule 250 MG PO (21:12)
[2025-01-02 14:00] VITALS: BP 128/83; PULSE 78; RESP 16; TEMP 37.2; O2SAT 98
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
[2025-01-02 20:00] VITALS: BP 144/92; PULSE 88; RESP 20; TEMP 36.8; O2SAT 98
[2025-01-02] MEDS: divalproex Sprinkles 125 mg Capsule 250 MG PO (20:22)
[2025-01-02] MEDS: haloperidol inj 5 mg/mL INJ 1 mL IM (20:49)
[2025-01-02] MEDS: LORazepam 1 MG/0.5 ML injection 2 MG IM (20:49)
[2025-01-02] MEDS: diphenhydrAMINE 50 mg/mL SDV 1mL IM (20:50)
--- NOTE | 2025-01-03 03:45 | PC.NURSE ---
pt behavior this nurse had a lengthy conversation with pt regarding his disruptive behavior on the unit. pt agreed to receive medication at that time. no further issues noted.
--- NOTE | 2025-01-03 04:12 | PC.NURSE ---
@1910 this typewriter aligner and Nurse Mavis where doing contraband checks on the unit, we pulled back bed 127-2 and discovered approximately 4 pills between the bed and the wall. We are unsure when the pills got there or who they where from, notified charge nurse and community outreach specialist Mary OVIEDO.
--- NOTE | 2025-01-03 06:29 | PC.NURSE ---
pt refused vs nurse notified resp 16
--- NOTE | 2025-01-03 09:13 | PC.NURSE ---
Pt. was moved to room 150-1 d/t the need to rearrange rooms for other pt.'s d/t conflicts not related to this pt. This pt. refused to change rooms when asked by a couple staff member. Security had to come to the room and tell pt. that he was moving to another room. Pt. was verbally argumentative to security, but walked willingly to the other room in 150-1.
[2025-01-03 13:26] LABS: PCP Screen Urine Negative (Negative)
[2025-01-03 14:00] VITALS: BP 127/86; PULSE 75; RESP 18; TEMP 36.8; O2SAT 99
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
[2025-01-03] MEDS: divalproex Sprinkles 125 mg Capsule 250 MG PO (20:23)
[2025-01-03] MEDS: LORazepam 1 MG/0.5 ML injection 2 MG IM (20:27)
[2025-01-03 21:54] VITALS: BP 134/88; PULSE 75; RESP 17; TEMP 37.1; O2SAT 98
[2025-01-04 13:26] VITALS: BP 131/88; PULSE 76; RESP 16; TEMP 36.8; O2SAT 95
[2025-01-04 14:28] VITALS: BP 131/88; PULSE 76; RESP 16; TEMP 36.8; O2SAT 100
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
== END 2025-01-04 15:30 | disposition home or self-care (01) | DRG 918 ==
LOC: ER 07:53 → ICU 13:23 → NP 12-27 10:28
PROVIDERS: Student in an Organized Health Care Education/Training Program; Admitting Provider Family Medicine; Emergency Provider Emergency Medicine; PCP Family Medicine; Visit Provider Psychiatry & Neurology Psychiatry
DX: T42.6X2A Poisoning by other antiepileptic and sedative-hypnotic drugs, intentional self-harm, initial encounter (principal); F33.2 Major depressive disorder, recurrent severe without psychotic features; F41.9 Anxiety disorder, unspecified; F43.10 Post-traumatic stress disorder, unspecified; F17.290 Nicotine dependence, other tobacco product, uncomplicated; Z91.51 Personal history of suicidal behavior; Z81.8 Family history of other mental and behavioral disorders
CPT/HCPCS: 36415; 80053; 80061; 80164; 80306; 80307; 81003; 82140; 83036; 83735; 83880; 84100; 84443; 85025; 90935; 93005; 96372; 97150; 97165; 99285; J1200; J1630; J2060; J7030; J9999

== ENCOUNTER 2025-01-10 23:27 | Inpatient (IN) | payer BC, MEDICAID, SELFPAY ==
[2025-01-10 23:31] VITALS: BP 120/81; PULSE 85; RESP 17; TEMP 36.9; O2SAT 95; BMI 20.9
--- NOTE | 2025-01-10 23:31 | XRR_ITS ---
PROCEDURE INFORMATION: Exam: XR Chest Exam date and time: 01/10/2025 11:43 PM Age: 19 years old Clinical indication: Other: Overdose; Additional info: Intentional overdose TECHNIQUE: Imaging protocol: Radiologic exam of the chest. Views: 1 view. COMPARISON: CR XR shoulder LT min 2V* [id number] 07/28/2021 7:36 PM FINDINGS: Lungs: No confluent consolidation. Pleural spaces: No pleural effusion. No pneumothorax is seen. Heart/Mediastinum: The heart is normal in size. Mediastinal contours are within normal limits. Bones/joints: No lytic or blastic lesions. No acute osseous abnormality. Intraperitoneal space: No free air is seen under the diaphragm. XR/XR chest 1V portable [id number] IMPRESSION: No acute pulmonary process.
--- NOTE | 2025-01-10 23:35 | ECG_ITS ---
[facility] Date: 2025-01-10 Pat Name: Gurpreet Boogie Department: Room: Gender: Male Headmaster/Mistress: : 2005 Requested By: Mike Aranda Order Number: [id number] Jacy MD: Jarek Duarte M.D. Measurements Intervals Cascade Rate: 84 P: 72 LA: 179 QRS: 73 QRSD: 85 T: 49 QT: 320 QTc: 380 Interpretive Statements SINUS RHYTHM POSSIBLE LEFT ATRIAL ENLARGEMENT [-0.1mV P-WAVE IN V1/V2] NONSPECIFIC T-WAVE ABNORMALITY Compared to ECG 12/27/2024 08:38:08 T-wave abnormality now present Sinus bradycardia no longer present Early repolarization no longer present Electronically Signed On 01-11-2025 21:40:02 CDT by Jarek Duarte M.D. [email or web address]
--- NOTE | 2025-01-10 23:54 | W.ED.OVERDOS ---
HPI - Overdose General: Chief Complaint: Overdose Stated Complaint: overdose,si Time Seen by Provider: 01/10/25 23:31 History of Present Illness: 19-year-old male brought into the emergency room by EMS after taking multiple medications overdose attempt to harm himself Lophlex to accompany them and provide affidavits. He had taken 6 500 mg Depakote 2350 mg Zoloft 18 20 mg propranolol. He has also been drinking. Patient states he regularly takes 8-10 propranolol per day. He is able to do this because he gets 90 per refill. He is not able to quantify for how long he has been doing them. Patient has had previous hospitalizations for suicide attempts he says the last 1 about 8 to 9 years ago. Related Data Previous Rx's ?Medication ?Instructions ?Recorded divalproex 500 mg tablet,extended 500 mg PO 0900 #30 tabs 01/04/25 release 24 hr (Depakote ER) propranolol 20 mg tablet 20 mg PO TID #90 tabs 01/04/25 sertraline 50 mg tablet 50 mg PO DAILY 30 days #30 tabs 01/04/25 Allergies Allergy/AdvReac Type Severity Reaction Status Date / Time risperidone Allergy Unknown Verified 11/22/24 13:24 Review of Systems Const: Denies: fever(s) or chills Card: Denies: chest pain Resp: Denies: dyspnea GI: Denies: abdominal pain : Denies: dysuria, urinary frequency or urinary urgency Musc: Denies: neck pain or back pain Skin/Breast: Denies: rash [facility] PFSH: Medical History Abnormal ultrasound No pertinent past medical history Family History Unknown Diabetes Cancer pancreatic and skin cancer Mother Breast cancer Grandfather Leukemia Social History Smoking and tobacco/nicotine status: never used tobacco/nicotine Substance/Drug Use: never Physical Exam Const: GENERAL APPEARANCE: cooperative ORIENTATION/CONSCIOUSNESS: Yes awake, Yes oriented to person, Yes oriented to place and Yes oriented to time HENMT: COMMON NORMALS: normocephalic, atraumatic and hearing grossly normal bilaterally HEAD & SCALP: normocephalic and atraumatic Resp: COMMON NORMALS: normal respiratory effort, No retractions, No use of accessory muscles and clear to auscultation bilaterally AUSCULTATION: clear to auscultation bilaterally Cardio: COMMON NORMALS: regular rate, regular rhythm and No murmurs present (Cardio) RATE: regular rate RHYTHM: regular rhythm GI: COMMON NORMALS: Soft to palpation and No hepatosplenomegaly present AUSCULTATION: Yes normoactive bowel sounds PALPATION: Yes Soft to palpation, No Tenderness to palpation present (GI), No Guarding due to palpation present (GI) and Yes No hepatosplenomegaly present Extremity: COMMON NORMALS: normal to inspection, capillary refill normal, no clubbing, cyanosis or edema, no calf tenderness and no pedal edema Neuro: SENSORIUM/ORIENTATION: Yes oriented to person, Yes oriented to place and Yes oriented to time Skin: COMMON NORMALS: no rashes or lesions noted GENERAL SKIN EXAM: no rashes or lesions noted Course Vital Signs: Vital signs: Vital Signs Temperature 99.1 F 01/11/25 04:00 Pulse Rate 70 01/11/25 04:04 Respiratory Rate 17 01/11/25 04:00 Blood Pressure 118/79 01/11/25 04:00 Pulse Oximetry 95 01/11/25 04:00 Oxygen Delivery Me thod Room Air 01/11/25 04:00 MDM - Overdose Medical Decision Making Discussed with hospitalist send discussed with psychiatry given the large amount of beta-alfredo to take will monitor the patient in the ICU overnight. Patient based on 96-hour hold consider transfer to MPU when appropriate Dr. Araiza has agreed to follow along with the patient until they are ready to be transferred to the MPU. Medical Records I reviewed the patient's medical records. Lab Data I reviewed the patient's lab results. 01/11/25 04:14 01/11/25 04:14 Radiology Impressions Chest X-Ray 01/10/25 23:31 IMPRESSION: No acute pulmonary process. Laboratory Results WBC 14.00 10^3/uL (4.5-13.0) H 01/10/25 23:54 RBC 5.62 10^6/uL (3.85-5.65) 01/10/25 23:54 Hgb 17.40 g/dL (13.2-15.6) H 01/10/25 23:54 Hct 51.6 % (37-53) 01/10/25 23:54 MCV 91.8 fl (82-101) 01/10/25 23:54 MCH 31.0 pg (27-33) 01/10/25 23:54 MCHC 33.7 g/dL (30-55) 01/10/25 23:54 RDW 12.4 % (12.1-15.1) 01/10/25 23:54 Plt Count 232 10^3/cmm (157-399) 01/10/25 23:54 MPV 10.9 fL (7.4-10.4) H 01/10/25 23:54 Neut % (Auto) 73.3 % 01/10/25 23:54 Lymph % (Auto) 16.9 % 01/10/25 23:54 Day % (Auto) 7.8 % 01/10/25 23:54 Eos % (Auto) 1.1 % 01/10/25 23:54 Baso % (Auto) 0.4 % 01/10/25 23:54 Neut # (Auto) 10.26 10^3/uL (1.8-8.0) H 01/10/25 23:54 Lymph # (Auto) 2.4 10^3/uL (1.5-6.5) 01/10/25 23:54 Day # (Auto) 1.1 10^3/uL (0.2-0.9) H 01/10/25 23:54 Eos # (Auto) 0.2 10^3/uL (0.0-0.8) 01/10/25 23:54 Baso # (Auto) 0.1 10^3/uL (0.0-0.1) 01/10/25 23:54 Nucleated RBC % (auto) 0 % 01/10/25 23:54 Nucleated RBCs # 0.0 /100WBC 01/10/25 23:54 Sodium 136 mmol/L (136-145) 01/10/25 23:54 Potassium 3.7 mmol/L (3.5-5.1) 01/10/25 23:54 Chloride 100 mmol/L (98-107) 01/10/25 23:54 Carbon Dioxide 25 mmol/L (22-29) 01/10/25 23:54 Anion Gap 14.7 (5-19) 01/10/25 23:54 BUN 10 mg/dL (6-20) 01/10/25 23:54 Creatinine 1.4 mg/dL (0.7-1.2) H 01/10/25 23:54 GFR Calculation 64.6 mL/min (90-130) L 01/10/25 23:54 Glucose 179 mg/dL (65-115) H 01/10/25 23:54 Calculated Osmolality 286 mOsm/kg (285-295) 01/10/25 23:54 Calcium 9.4 mg/dL (8.5-10.5) 01/10/25 23:54 Total Bilirubin 0.7 mg/dL (0.15-1.2) 01/10/25 23:54 AST 14 U/L (0-40) 01/10/25 23:54 ALT 21 U/L (0-41) 01/10/25 23:54 Alkaline Phosphatase 71 U/L (40-130) 01/10/25 23:54 Total Protein 7.3 g/dL (6.6-8.7) 01/10/25 23:54 Albumin 4.4 g/dL (3.5-5.2) 01/10/25 23:54 Globulin 2.9 g/dL (1.3-4.6) 01/10/25 23:54 Salicylates < 0.3 mg/dL (3-10) L 01/10/25 23:54 Acetaminophen < 5.0 ug/mL (10-30) L 01/10/25 23:54 Valproic Acid 33.4 ug/mL (50-100) L 01/10/25 23:54 Ethyl Alcohol < 10 mg/dL (0-10) 01/10/25 23:54 All radiology interpretation(s) finalized by discharge EKG Data EKG 1: Interpretation: EKG done 01/10/2025 2335 normal sinus rhythm some signs of early repolarization in precordial leads. No acute ST elevation. No significant change from EKG 12/27/2024. Discharge Plan Discharge Patient Disposition: Admitted As Inpatient Admit Provider: No Starks Clinical Impression: Intentional overdose, Suicide attempt Condition: Stable Coding Level of Care Code ED Industrial Energy Engineer for Chg Vito
[2025-01-11] VITALS (37 sets, daily range): BP systolic 97–146; BP diastolic 52–89; PULSE 61–93; RESP 10–24; TEMP 36.9–37.3; O2SAT 93–99
[2025-01-11 00:02] LABS: Hematocrit 51.6 % (37-53); Hemoglobin 17.40 g/dL (13.2-15.6); Mean Corpuscular HGB Conc 33.7 g/dL (30-55); Mean Corpuscular Hemoglobin 31.0 pg (27-33); Mean Corpuscular Volume 91.8 fl (82-101); Nucleated Red Blood Cells % 0 %; Platelet Count 232 10^3/cmm (157-399); Red Blood Count 5.62 10^6/uL (3.85-5.65); White Blood Count 14.00 10^3/uL (4.5-13.0)
--- NOTE | 2025-01-11 00:05 | PC.NURSE ---
Spoke with Yamila at poison control about medications take took this evening. Per DEPAKOTE LEVEL -Q4-6 AFTER INITAL AMIONIA LEVEL IF LEVEL IS ELEVATED ZOLOF 8.5HR PEAK SERATOININ SYNDROME PROPANOLOL- HYPOTENSIVE/ BRADYCARDIA HIGH DOSE GLUCAGON PRESSORS
[2025-01-11 00:20] LABS: Alanine Aminotransferase 21 U/L (0-41); Albumin Level 4.4 g/dL (3.5-5.2); Alkaline Phosphatase 71 U/L (40-130); Anion Gap 14.7 (5-19); Aspartate Amino Transferase 14 U/L (0-40); Blood Urea Nitrogen 10 mg/dL (6-20); Calcium 9.4 mg/dL (8.5-10.5); Carbon Dioxide 25 mmol/L (22-29); Chloride 100 mmol/L (98-107); Creatinine Clr Calc Pharmacy 88.9081; Globulin 2.9 g/dL (1.3-4.6); Glucose 179 mg/dL (65-115); Osmolality Calculated 286 mOsm/kg (285-295); Potassium 3.7 mmol/L (3.5-5.1); Sodium 136 mmol/L (136-145); Total Protein 7.3 g/dL (6.6-8.7)
[2025-01-11 00:21] LABS: Acetaminophen < 5.0 ug/mL (10-30); Alcohol Level < 10 mg/dL (0-10); Salicylate < 0.3 mg/dL (3-10)
--- NOTE | 2025-01-11 00:57 | PC.NURSE ---
96 [facility] Pt served with copy of 96 HH by this RN and security. Pt alert & oriented at this time. Pt states that he is familiar with 96 Hour Holds and has no questions regarding the hold or the process at this time.
[2025-01-11] MEDS: heparin 5,000 unit/mL INJ 1 mL 5000 UNIT SUBCUT ×2 (03:49→15:25)
[2025-01-11 04:37] LABS: Hematocrit 51.6 % (37-53); Hemoglobin 17.20 g/dL (13.2-15.6); Mean Corpuscular HGB Conc 33.3 g/dL (30-55); Mean Corpuscular Hemoglobin 30.2 pg (27-33); Mean Corpuscular Volume 90.7 fl (82-101); Nucleated Red Blood Cells % 0 %; Platelet Count 215 10^3/cmm (157-399); Red Blood Count 5.69 10^6/uL (3.85-5.65); White Blood Count 15.09 10^3/uL (4.5-13.0)
[2025-01-11 04:58] LABS: Alanine Aminotransferase 22 U/L (0-41); Albumin Level 4.5 g/dL (3.5-5.2); Alkaline Phosphatase 74 U/L (40-130); Anion Gap 17.0 (5-19); Aspartate Amino Transferase 14 U/L (0-40); Blood Urea Nitrogen 10 mg/dL (6-20); Calcium 9.3 mg/dL (8.5-10.5); Carbon Dioxide 24 mmol/L (22-29); Chloride 101 mmol/L (98-107); Creatinine Clr Calc Pharmacy 138.8148; Globulin 2.8 g/dL (1.3-4.6); Glucose 95 mg/dL (65-115); Magnesium 2.0 mg/dL (1.7-2.3); Osmolality Calculated 285 mOsm/kg (285-295); Potassium 4.0 mmol/L (3.5-5.1); Sodium 138 mmol/L (136-145); Total Protein 7.3 g/dL (6.6-8.7)
--- NOTE | 2025-01-11 08:07 | P.HP_ITS ---
Providers/Chief Complaint 2 Admitting Physician: No Starks MD Primary Care Provider: Kevin Ornelas MD Chief Complaint: overdose,si History of Present Illness Gurpreet Boogie is a 19 year old male with no significant medical history except for major depression and suicidal ideation PTSD. Patient verbalized that he kind of want to halt himself. Patient had taken 33 tablets of 20 mg of propranolol early a.m. and then came back and took and not the 18 tablets patient also took 8 tablets of 20 mg of some of the medication and then had 6 tablets of 500 mg of Depakote along with 23 tablets of 50 mg of Zoloft why is he doing this he had no idea but he just said he wants to hold himself. So he has suicidal ideation and he really wants to commit suicide. Patient was admitted to ICU to be medically cleared before he can go to psych. Patient was able to speak with me and and I think at this time he should be able to talk with the psychiatry intelligently and with alertness. He does not look ill and he is not toxic he is on room air hemodynamically stable vital signs were fine. The oncoming attendants will be able to follow through with this patient and be able to be in a position to clear the patient medically. Review of Systems 2 Narrative: System review upon 10 organ reviewed we are essentially unremarkable. Medications/Allergies Home Medications ?Medication ?Instructions ?Recorded ?Confirmed ?Last Taken ?Type divalproex 500 mg tablet,extended 500 mg PO 0900 #30 t abs 01/04/25 01/11/25 01/10/25 Rx release 24 hr (Depakote ER) propranolol 20 mg tablet 20 mg PO TID #90 tabs 01/11/25 01/10/25 Rx sertraline 50 mg tablet 50 mg PO DAILY 30 days #30 t abs 01/04/25 01/11/25 01/10/25 Rx Allergies Allergy/AdvReac Type Severity Reaction Status Date / Time risperidone Allergy Unknown Verified 11/22/24 13:24 PFSH Acute 2 PFSH: Medical History Abnormal ultrasound No pertinent past medical history Family History Unknown Diabetes Cancer pancreatic and skin cancer Mother Breast cancer Grandfather Leukemia Social History Smoking and tobacco/nicotine status: never used tobacco/nicotine Substance/Drug Use: never Vitals/I&O/Wt Last Vital Signs Temp 98.5 F 01/11/25 07:30 Pulse 86 01/11/25 07:30 Resp 21 H 01/11/25 07:30 BP 115/78 01/11/25 07:30 Pulse Ox 93 01/11/25 07:30 O2 Del Method Room Air 01/11/25 07:30 01/10/25 01/11/25 01/11/25 22:59 06:59 14:59 Intake Total 0 / 0 Balance 0 / 0 Weight last 48 hrs Weight 71 kg Weight 71 kg Weight 70.307 kg Physical Exam 2 Narrative: Patient has a flat affect but not troublesome to anybody or answer question when asked. HEENT normocephalic atraumatic neck neck is supple cardiovascular heart rate is regular lungs are pretty much clear abdomen soft nontender nondistended unremarkable extremities are intact no edema has good pulses neurology there is no focality lab studies lab studies reviewed and noted. Data 01/11/25 04:14 01/11/25 04:14 A&P Assessment and plan 1. Suicidal behavior with attempted self-injury: 2. Suicidal ideation: 3. MDD (major depressive disorder), recurrent severe, without psychosis: 4. PTSD (post-traumatic stress disorder): Plan: Suicidal ideation and attempt - Patient is with intentional drug overdose multiple drugs - Admitted to ICU for close monitoring - Patient is hemodynamically stable vital signs are good. Must continue to monitor - Once medically cleared psychiatry need to see patient and be able to take the patient in to psychiatric rehman For psychiatry illness treatment and care Patient had other medical consultation for psychiatric such as major depression PTSD, defer to psychiatrist PDMP PDMP Reviewed: Not Reviewed Attestations 2 Medical Necessity Statement*: Patient is being screened and get medical optimization for clearance to follow through with psychiatric care desires at least 2 midnights for evaluation. Coding Level of Care Code 50235 Diagnoses Suicidal behavior with attempted self-injury T14.91XA Suicidal ideation R45.851 MDD (major depressive disorder), recurrent severe, without psychosis F33.2 PTSD (post-traumatic stress disorder) F43.10 Time Spent (min) 50
--- NOTE | 2025-01-11 08:44 | ECG_ITS ---
[facility]25[facility] Pat Name: Gurpreet Boogie Department: Room: ICU11 Gender: Male Emt I/85: : 2005 Requested By: Jabari Jean-Baptiste Order Number: [id number] Jacy MD: Jarek Duarte M.D. Measurements Intervals [place] Rate: 65 P: 61 MO: 156 QRS: 79 QRSD: 84 T: 69 QT: 353 QTc: 369 Interpretive Statements SINUS RHYTHM EARLY REPOLARIZATION [ST ELEVATION WITH NORMALLY INFLECTED T-WAVE] Compared to ECG 01/10/2025 23:35:07 Early repolarization now present T-wave abnormality no longer present Electronically Signed On 01-11-2025 20:48:52 CDT by Jarek Duarte M.D. [email or web address]
[2025-01-11] MEDS: piperacillin-tazobactam 3.375 GM in sodium chloride 0.9% (plus) 50 ML IV ×2 (08:51→15:55)
[2025-01-11 08:52] LABS: Hematocrit 49.5 % (37-53); Hemoglobin 16.60 g/dL (13.2-15.6); Mean Corpuscular HGB Conc 33.5 g/dL (30-55); Mean Corpuscular Hemoglobin 30.6 pg (27-33); Mean Corpuscular Volume 91.2 fl (82-101); Nucleated Red Blood Cells % 0 %; Platelet Count 205 10^3/cmm (157-399); Red Blood Count 5.43 10^6/uL (3.85-5.65); White Blood Count 13.55 10^3/uL (4.5-13.0)
[2025-01-11 09:10] LABS: Alanine Aminotransferase 18 U/L (0-41); Albumin Level 4.4 g/dL (3.5-5.2); Alkaline Phosphatase 72 U/L (40-130); Anion Gap 14.2 (5-19); Aspartate Amino Transferase 12 U/L (0-40); Blood Urea Nitrogen 10 mg/dL (6-20); Calcium 9.3 mg/dL (8.5-10.5); Carbon Dioxide 25 mmol/L (22-29); Chloride 102 mmol/L (98-107); Creatinine Clr Calc Pharmacy 156.1667; Globulin 2.3 g/dL (1.3-4.6); Glucose 98 mg/dL (65-115); Osmolality Calculated 283 mOsm/kg (285-295); Potassium 4.2 mmol/L (3.5-5.1); Sodium 137 mmol/L (136-145); Total Protein 6.7 g/dL (6.6-8.7)
--- NOTE | 2025-01-11 13:10 | P.PN_ITS ---
Subjective 2 Subjective: Admitted overnight. H&P and labs appreciated. Has remained hemodynamically stable. Laying comfortably in bed. Vitals/I&O/Wt Last Vital Signs Temp 98.5 F 01/11/25 07:30 Pulse 80 01/11/25 12:00 Resp 22 H 01/11/25 12:00 BP 101/74 01/11/25 12:00 Pulse Ox 97 01/11/25 12:00 O2 Del Method Room Air 01/11/25 12:00 01/10/25 01/11/25 01/11/25 22:59 06:59 14:59 Intake Total 0 / 0 Balance 0 / 0 Weight last 48 hrs Weight 71 kg Weight 71 kg Weight 70.307 kg Physical Exam 2 Narrative: Patient has a flat affect but not troublesome to anybody or answer question when asked. AO x 3. Moving all limbs. HEENT: Normocephalic atraumatic neck neck is supple Cardiovascular: S1-S2 regular, no murmur Lungs: Normal vesicular breath sounds all over lung nuno Abdomen: Soft nontender nondistended Extremities are intact no edema has good pulses Neuro: No focal deficit Data 01/11/25 08:29 01/11/25 08:29 Micro: Microbiology 01/11/25 09:35 Blood Culture - Preliminary Blood SPECIMEN COLLECTED 01/11/25 09:33 Blood Culture - Preliminary Blood SPECIMEN COLLECTED A&P Assessment and plan 1. Suicidal behavior with attempted self-injury: 2. Suicidal ideation: 3. MDD (major depressive disorder), recurrent severe, without psychosis: 4. PTSD (post-traumatic stress disorder): Plan: Suicidal ideation and attempt: Intentional overdose on multiple tablets of propranolol, Zoloft and Depakote. Discussed in detail with poison control. Monitor QTc. Monitor for serotonin syndrome. Patient already post peak for most of the medications. Will continue to monitor for 24 more hours. Able to maintain oral intake. Monitor BMP and CBC daily. Monitor Depakote levels daily. Will consult psychiatry. 96-hour hold. Transition to Neuropsych Unit in next 24 hours if patient remains hemodynamically stable. Leukocytosis: Most likely reactive. Check blood culture. Empirically start on IV Zosyn for now. Regular diet Heparin 5000 every 12 hourly for DVT prophylaxis Protonix for PUD prophylaxis PDMP PDMP Reviewed: Not Reviewed Attestations 2 Medical Necessity Statement*: Requires further hospitalization for management of suicidal ideation with attempt, intentional overdose of multiple medications Diagnoses Suicidal behavior with attempted self-injury T14.91XA Suicidal ideation R45.851 MDD (major depressive disorder), recurrent severe, without psychosis F33.2 PTSD (post-traumatic stress disorder) F43.10
[2025-01-11 14:14] LABS: Glucose Urine UA Negative (Normal); Nitrate Urine Negative (Negative)
[2025-01-11 14:20] LABS: Add Urine Microscopic? YES
[2025-01-11 14:29] LABS: Specific Gravity, Urine 1.034 (1.005-1.030)
[2025-01-11 14:33] LABS: PCP Screen Urine Negative (Negative)
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
[2025-01-12] VITALS (14 sets, daily range): BP systolic 97–140; BP diastolic 54–84; PULSE 53–80; RESP 9–20; TEMP 36.6–37.1; O2SAT 97–100
[2025-01-12] MEDS: piperacillin-tazobactam 3.375 GM in sodium chloride 0.9% (plus) 50 ML IV ×2 (01:40→09:04)
[2025-01-12 03:57] LABS: Hematocrit 43.2 % (37-53); Hemoglobin 14.20 g/dL (13.2-15.6); Mean Corpuscular HGB Conc 32.9 g/dL (30-55); Mean Corpuscular Hemoglobin 30.4 pg (27-33); Mean Corpuscular Volume 92.5 fl (82-101); Nucleated Red Blood Cells % 0 %; Platelet Count 153 10^3/cmm (157-399); Red Blood Count 4.67 10^6/uL (3.85-5.65); White Blood Count 9.28 10^3/uL (4.5-13.0)
[2025-01-12 04:23] LABS: Alanine Aminotransferase 13 U/L (0-41); Albumin Level 3.8 g/dL (3.5-5.2); Alkaline Phosphatase 58 U/L (40-130); Anion Gap 14.9 (5-19); Aspartate Amino Transferase 9 U/L (0-40); Blood Urea Nitrogen 12 mg/dL (6-20); Calcium 8.8 mg/dL (8.5-10.5); Carbon Dioxide 27 mmol/L (22-29); Chloride 103 mmol/L (98-107); Creatinine Clr Calc Pharmacy 156.1667; Globulin 1.9 g/dL (1.3-4.6); Glucose 96 mg/dL (65-115); Osmolality Calculated 292 mOsm/kg (285-295); Potassium 3.9 mmol/L (3.5-5.1); Sodium 141 mmol/L (136-145); Total Protein 5.7 g/dL (6.6-8.7)
[2025-01-12] MEDS: heparin 5,000 unit/mL INJ 1 mL 5000 UNIT SUBCUT (04:46)
--- NOTE | 2025-01-12 10:38 | PC.NURSE ---
Report was given to nurse in NPU. All IVS were taken out and security helped this nurse to escort patient to [facility]. Patient was stable during transfer.
--- NOTE | 2025-01-12 11:19 | PC.NURSE ---
when doing rounds pt was laying in bed with his glasses and and that he broke them. he said for no reason at all that he did it
--- NOTE | 2025-01-12 11:30 | PC.NURSE ---
DIRECTOR OF BANDS reported that pt. had broken his glasses. When DIRECTOR OF BANDS asked what had happened pt. stated it just happened and would not go into detail with DIRECTOR OF BANDS
--- NOTE | 2025-01-12 12:04 | P.PN_ITS ---
Subjective 2 Subjective: No acute events overnight. Patient has remained hemodynamically stable and afebrile. Remains on room air. Vitals/I&O/Wt Last Vital Signs Temp 98.1 F 01/12/25 11:34 Pulse 74 01/12/25 11:34 Resp 16 01/12/25 11:34 BP 140/73 01/12/25 11:34 Pulse Ox 99 01/12/25 11:34 O2 Del Method Room Air 01/12/25 11:34 01/11/25 01/12/25 01/12/25 22:59 06:59 14:59 Intake Total 530 / 1580 2490 / 4070 240 / 240 Output Total 650 / 650 Balance 530 / 1055 2490 / 3545 -410 / -410 Weight last 48 hrs Weight 73 kg Weight 71 kg Weight 71 kg Weight 70.307 kg Physical Exam 2 Narrative: Patient has a flat affect but not troublesome to anybody or answer question when asked. AO x 3. Moving all limbs. HEENT: Normocephalic atraumatic neck neck is supple Cardiovascular: S1-S2 regular, no murmur Lungs: Normal vesicular breath sounds all over lung nuno Abdomen: Soft nontender nondistended Extremities are intact no edema has good pulses Neuro: No focal deficit Data 01/12/25 03:27 01/12/25 03:27 Micro: Microbiology 01/11/25 09:35 Blood Culture - Preliminary Blood NEGATIVE TO DATE 01/11/25 09:33 Blood Culture - Preliminary Blood NEGATIVE TO DATE A&P Assessment and plan 1. Suicidal behavior with attempted self-injury: 2. Suicidal ideation: 3. MDD (major depressive disorder), recurrent severe, without psychosis: 4. PTSD (post-traumatic stress disorder): 5. Urinary retention: Plan: Suicidal ideation and attempt: Intentional overdose on multiple tablets of propranolol, Zoloft and Depakote. Discussed in detail with poison control. Monitor QTc. Monitor for serotonin syndrome. Patient already post peak for most of the medications. Will continue to monitor for 24 more hours. Able to maintain oral intake. Monitor BMP and CBC daily. Monitor Depakote levels daily. Will consult psychiatry. 96-hour hold. Transition to Neuropsych Unit in next 24 hours if patient remains hemodynamically stable. Leukocytosis: Most likely reactive. Check blood culture. Empirically start on IV Zosyn for now. Regular diet Heparin 5000 every 12 hourly for DVT prophylaxis Protonix for PUD prophylaxis Plan for the day: Patient has remained hemodynamically stable. Blood pressures have remained stable. EKG shows appropriate QTc. Able to maintain oral intake. Appropriate valproic acid levels. Continues to have concern for occasional urinary retention. Will need to continue bladder scan and straight cath as needed. Encourage patient to ambulate more. Patient can be transferred to Neuropsych Unit for further evaluation and management. 96 hours. Repeat CBC and CMP in AM. Stop Zosyn. Will transition to oral Augmentin and Levaquin for 3 more days. PDMP PDMP Reviewed: Not Reviewed Attestations 2 Medical Necessity Statement*: Requires further hospitalization for 96-hour hold, suicidal ideation with intentional overdose of multiple medications Diagnoses Suicidal behavior with attempted self-injury T14.91XA Suicidal ideation R45.851 MDD (major depressive disorder), recurrent severe, without psychosis F33.2 PTSD (post-traumatic stress disorder) F43.10 Urinary retention R33.9
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
[2025-01-13 06:00] VITALS: BP 104/61; PULSE 65; RESP 16; TEMP 36.4; O2SAT 97
[2025-01-13 07:48] LABS: Hematocrit 44.0 % (37-53); Hemoglobin 14.60 g/dL (13.2-15.6); Mean Corpuscular HGB Conc 33.2 g/dL (30-55); Mean Corpuscular Hemoglobin 30.9 pg (27-33); Mean Corpuscular Volume 93.2 fl (82-101); Nucleated Red Blood Cells % 0 %; Platelet Count 137 10^3/cmm (157-399); Red Blood Count 4.72 10^6/uL (3.85-5.65); White Blood Count 6.53 10^3/uL (4.5-13.0)
[2025-01-13 08:10] LABS: Alanine Aminotransferase 12 U/L (0-41); Albumin Level 3.9 g/dL (3.5-5.2); Alkaline Phosphatase 57 U/L (40-130); Anion Gap 12.8 (5-19); Aspartate Amino Transferase 9 U/L (0-40); Blood Urea Nitrogen 10 mg/dL (6-20); Calcium 9.0 mg/dL (8.5-10.5); Carbon Dioxide 25 mmol/L (22-29); Chloride 107 mmol/L (98-107); Creatinine Clr Calc Pharmacy 180.3810; Globulin 2.3 g/dL (1.3-4.6); Glucose 91 mg/dL (65-115); Osmolality Calculated 291 mOsm/kg (285-295); Potassium 3.8 mmol/L (3.5-5.1); Sodium 141 mmol/L (136-145); Total Protein 6.2 g/dL (6.6-8.7)
--- NOTE | 2025-01-13 08:48 | P.PN_ITS ---
Subjective 2 Subjective: No acute events overnight. Patient in Neuropsych Unit now. Has remained hemodynamically stable and afebrile. Vitals/I&O/Wt Last Vital Signs Temp 97.6 F 01/13/25 06:00 Pulse 65 01/13/25 06:00 Resp 16 01/13/25 06:00 BP 104/61 01/13/25 06:00 Pulse Ox 97 01/13/25 06:00 O2 Del Method Room Air 01/13/25 06:00 Weight last 48 hrs Weight 73 kg Physical Exam 2 Narrative: Patient has a flat affect but not troublesome to anybody or answer question when asked. AO x 3. Moving all limbs. HEENT: Normocephalic atraumatic neck neck is supple Cardiovascular: S1-S2 regular, no murmur Lungs: Normal vesicular breath sounds all over lung nuno Abdomen: Soft nontender nondistended Extremities are intact no edema has good pulses Neuro: No focal deficit Data 01/13/25 07:27 01/13/25 07:27 Micro: Microbiology 01/11/25 09:35 Blood Culture - Preliminary Blood NEGATIVE TO DATE 01/11/25 09:33 Blood Culture - Preliminary Blood NEGATIVE TO DATE A&P Assessment and plan 1. Suicidal behavior with attempted self-injury: 2. Suicidal ideation: 3. MDD (major depressive disorder), recurrent severe, without psychosis: 4. PTSD (post-traumatic stress disorder): 5. Urinary retention: Plan: Suicidal ideation and attempt: Intentional overdose on multiple tablets of propranolol, Zoloft and Depakote. Discussed in detail with poison control. Monitor QTc. Monitor for serotonin syndrome. Patient already post peak for most of the medications. Will continue to monitor for 24 more hours. Able to maintain oral intake. Monitor BMP and CBC daily. Monitor Depakote levels daily. Will consult psychiatry. 96-hour hold. Transition to Neuropsych Unit in next 24 hours if patient remains hemodynamically stable. Leukocytosis: Most likely reactive. Check blood culture. Empirically start on IV Zosyn for now. Regular diet Heparin 5000 every 12 hourly for DVT prophylaxis Protonix for PUD prophylaxis Plan for the day: Appreciate labs. No electrode abnormalities. Has remained hemodynamically stable. Continue with Augmentin and Levaquin for 3-day course. Leukocytosis resolved. Patient able to pass urine by himself. Depakote levels appreciated. Restart home dose of Depakote today. Medicine will sign off. Please call back if any concerns or questions. PDMP PDMP Reviewed: Not Reviewed Attestations 2 Medical Necessity Statement*: As per primary team. Patient admitted for suicidal ideation with intentional overdose of medications Diagnoses Suicidal behavior with attempted self-injury T14.91XA Suicidal ideation R45.851 MDD (major depressive disorder), recurrent severe, without psychosis F33.2 PTSD (post-traumatic stress disorder) F43.10 Urinary retention R33.9
--- NOTE | 2025-01-13 09:50 | PC.NURSE ---
attempted to administer po medication pt refused. pt would not acknowledge staff presence in the room.
[2025-01-13 14:00] VITALS: BP 122/70; PULSE 80; RESP 20; TEMP 36.7; O2SAT 96
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
[2025-01-13 19:33] VITALS: BP 126/84; PULSE 86; RESP 18; TEMP 37; O2SAT 97
--- NOTE | 2025-01-13 20:05 | PC.NURSE ---
Patient Denies SI, HI, AH, VH, discomfort or any acute psychological distress upon assessment. However he presents with a flat, blocking, evasive demeanor. This as such, causes concern with the validity of his answers to assessment questions.
[2025-01-14 06:00] VITALS: BP 106/62; PULSE 56; RESP 17; TEMP 36.4; O2SAT 91
[2025-01-14] MEDS: divalproex ER 500 mg Tablet (24H) PO (08:53)
[2025-01-14 14:00] VITALS: BP 94/72; PULSE 99; RESP 17; TEMP 36.9; O2SAT 100
--- NOTE | 2025-01-14 14:58 | W.PM.NPUPNS ---
Subjective NPU Subjective: Patient presented today reporting that he is doing all right. He reports that he is safe in the hospital and is about all he can give us at this point. He is very unclear as to why these things escalate to the level that they do we discussed this really reflecting in the custody pathology that it appears that he has. We discussed the need for him to have some intensive therapy with CBT/DBT focus. He denied any side effects to the medication and continue to be on a one-to-one. Mental Status Exam MSE Comments: This is a tall slender white male in hospital scrubs with disheveled appearance and poor eye contact. There was no evidence of any abnormal involuntary motor movements except for severe psychomotor retardation. He was cooperative with exam and mild distress. Speech was decreased in rate and normal in volume. Mood was endorsed as depressed. His affect was flat and dysphoric. His thought process was linear and organized. Thought content Revealed active suicidal ideation with continued thoughts of wanting to overdose. He was unable to contract for safety here. He denied any homicidal ideation. There were no delusions reported or noted. He denied any auditory or visual hallucinations. History of suicide attempts with a recent overdose of medications. Reports anxiety and paranoia. He endorsed difficulty sleeping with frequent nightmares. Stressors include issues of abandonment, forced isolation, and relationship difficulties. Attention and concentration were intact and memory appeared reliable but none were formally tested. He is alert and oriented x 3. Insight was impaired. His judgment and impulse control is impaired. Vitals/I&O/Wt Last Vital Signs Temp 97.6 F 01/14/25 06:00 Pulse 56 L 01/14/25 06:00 Resp 17 01/14/25 06:00 BP 106/62 01/14/25 06:00 Pulse Ox 91 01/14/25 06:00 O2 Del Method Room Air 01/14/25 06:00 Data NPU 01/13/25 07:27 01/13/25 07:27 A&P Assessment and plan 1. MDD (major depressive disorder), recurrent severe, without psychosis: 2. Intentional overdose: 3. Borderline personality disorder: 4. PTSD (post-traumatic stress disorder): 5. Suicide attempt: Plan: 19-year-old male now in NPU admitted once again to hospital after an overdose 1 week after being discharged for a significant overdose with continued suicidal ideation. He has a history of poor impulse control and chronic feelings of abandonment. He appears to have some symptoms suggestive of Reactive Attachment disorder as well. 1.? Engage patient in individual milieu and group therapy. #2?? Recommend sober living treatment at the highest level of care to which the patient is willing to commit. Hold outpatient medications for now. #3??? Continue Depakote 500mg ER in am. Patient SSRI remains on hold for now. ?? #4?? continue one-to-one until we feel comfortable he can contract for safety in the hospital.? #5?? Will attempt to gather collateral information PDMP PDMP Reviewed: Not Reviewed Involuntary Hold Information Hold Status: Legal Status: 96 Hour Hold Date/Time Hold Expires: 01/17/25 @ 00:13 Attestations NPU Medical Necessity Statement*: Inpatient psychiatric hospitalization is medically necessary and the clinically appropriate intervention at this time. Will monitor medications and make changes as indicated. His likely length of stay is days. Coding Level of Care Code Acute Code for [facility] Fwd Diagnoses MDD (major depressive disorder), recurrent severe, without psychosis F33.2 Intentional overdose T50.902A Borderline personality disorder F60.3 PTSD (post-traumatic stress disorder) F43.10 Suicide attempt T14.91XA
[2025-01-14 21:48] VITALS: BP 125/77; PULSE 75; RESP 18; TEMP 36.8; O2SAT 99
[2025-01-15 06:00] VITALS: BP 96/65; PULSE 55; RESP 16; O2SAT 95
[2025-01-15] MEDS: divalproex ER 500 mg Tablet (24H) PO (08:49)
[2025-01-15 14:00] VITALS: BP 133/75; PULSE 99; RESP 17; TEMP 36.7; O2SAT 99
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
[2025-01-15 19:33] VITALS: BP 118/77; PULSE 67; RESP 16; TEMP 37.2; O2SAT 98
[2025-01-16 06:00] VITALS: BP 124/78; PULSE 65; RESP 18; TEMP 37; O2SAT 97
--- NOTE | 2025-01-16 07:36 | P.NPUPN_ITS ---
Subjective NPU 2 Subjective: Patient presented today reporting that he is feeling fine. He reports that he will be fine in the hospital off of one-to-one but continues to express uncertainty about what will happen with. Staff report some conversations with him but suggest that he is still stating that he will [place] himself [place] the court [place] when his court date with his ex occurs. He is somewhat cagey when this conversation comes up. However he denies any side effects of the medication and reports he is feeling okay. Mental Status Exam 2 MSE Comments: This is a tall slender white male in hospital scrubs with disheveled appearance and poor eye contact. There was no evidence of any abnormal involuntary motor movements except for severe psychomotor retardation. He was cooperative with exam and mild distress. Speech was decreased in rate and normal in volume. Mood was endorsed as depressed. His affect was flat and dysphoric. His thought process was linear and organized. Thought content Revealed active suicidal ideation with continued thoughts of wanting to overdose. He was unable to contract for safety here. He denied any homicidal ideation. There were no delusions reported or noted. He denied any auditory or visual hallucinations. History of suicide attempts with a recent overdose of medications. Reports anxiety and paranoia. He endorsed difficulty sleeping with frequent nightmares. Stressors include issues of abandonment, forced isolation, and relationship difficulties. Attention and concentration were intact and memory appeared reliable but none were formally tested. He is alert and oriented x 3. Insight was impaired. His judgment and impulse control is impaired. Vitals/I&O/Wt Last Vital Signs Temp 98.6 F 01/16/25 06:00 Pulse 65 01/16/25 06:00 Resp 18 01/16/25 06:00 BP 124/78 01/16/25 06:00 Pulse Ox 97 01/16/25 06:00 O2 Del Method Room Air 01/16/25 06:00 01/15/25 01/16/25 01/16/25 22:59 06:59 14:59 Output Total 1175 / 3525 Balance -1175 / -3525 Weight last 48 hrs Weight 73.119 kg Data NPU 01/13/25 07:27 01/13/25 07:27 A&P Assessment and plan 1. MDD (major depressive disorder), recurrent severe, without psychosis: 2. Intentional overdose: 3. Borderline personality disorder: 4. PTSD (post-traumatic stress disorder): 5. Suicide attempt: Plan: 19-year-old male now in NPU admitted once again to hospital after an overdose 1 week after being discharged for a significant overdose with continued suicidal ideation. He has a history of poor impulse control and chronic feelings of abandonment. He appears to have some symptoms suggestive of Reactive Attachment disorder as well. 1.? Engage patient in individual milieu and group therapy. #2?? Recommend sober living treatment at the highest level of care to which the patient is willing to commit. Hold outpatient medications for now. #3??? Continue Depakote 500mg ER in am. Patient SSRI remains on hold for now. ?? #4?? continue one-to-one until we feel comfortable he can contract for safety in the hospital.?Changed to every 15 minute checks for safety and evaluate for keeping that instead of the one-to-one moving forward.? #5?? Will attempt to gather collateral information PDMP PDMP Reviewed: Not Reviewed Involuntary Hold Information 2 Hold Status: Legal Status: 96 Hour Hold Date/Time Hold Expires: 01/17/25 @ 00:13 Attestations NPU 2 Medical Necessity Statement*: Inpatient psychiatric hospitalization is medically necessary and the clinically appropriate intervention at this time. Will monitor medications and make changes as indicated. His likely length of stay is 4-6 days. Coding Level of Care Code Acute Code for [facility] Fwd Diagnoses MDD (major depressive disorder), recurrent severe, without psychosis F33.2 Intentional overdose T50.902A Borderline personality disorder F60.3 PTSD (post-traumatic stress disorder) F43.10 Suicide attempt T14.91XA
[2025-01-16] MEDS: divalproex ER 500 mg Tablet (24H) PO (08:15)
[2025-01-16 14:00] VITALS: BP 106/59; PULSE 70; RESP 16; TEMP 36.7; O2SAT 99
[2025-01-16 20:54] VITALS: BP 98/68; PULSE 69; RESP 17; TEMP 36.7; O2SAT 100
[2025-01-17 06:00] VITALS: BP 97/59; PULSE 68; RESP 16; TEMP 36.5; O2SAT 99
[2025-01-17] MEDS: divalproex ER 500 mg Tablet (24H) PO (08:45)
--- NOTE | 2025-01-17 11:13 | PC.NURSE ---
prn Vistaril 50 mg given po per pt c/o stated anxiety
--- NOTE | 2025-01-17 13:49 | W.PM.NPUPNS ---
Subjective NPU Subjective: Patient presented today reporting that he is going to go to the hearing today. He reports he is doing a little better but still has concerns about what he might do at discharge. We discussed some of the relationship issues that have been plaguing him and we discussed diagnoses. We discussed the risks, benefits and alternatives of initiating Invega 3 mg p.o. daily and he understood and agreed to proceed as is documented in this note. We discussed working with the social work team on discharge options and taking him off of the one-to-one as they continue to evaluate for safety. He denied any side effects of medication. Mental Status Exam MSE Comments: This is a tall slender white male in hospital scrubs with disheveled appearance and poor eye contact. There was no evidence of any abnormal involuntary motor movements except for mild psychomotor agitation. He was cooperative with exam and mild distress. Speech was decreased in rate and normal in volume. Mood was endorsed as wired. His affect was congruent and irritable. His thought process was linear and organized. Thought content Revealed active suicidal ideation with continued thoughts of wanting to overdose. He denied any homicidal ideation. There were no delusions reported or noted. He denied any auditory or visual hallucinations. History of suicide attempts with a recent overdose of medications. Reports anxiety and paranoia. He endorsed difficulty sleeping with frequent nightmares. Stressors include issues of abandonment, forced isolation, and relationship difficulties. Attention and concentration were intact and memory appeared reliable but none were formally tested. He is alert and oriented x 3. Insight was impaired. His judgment and impulse control is impaired. Vitals/I&O/Wt Last Vital Signs Temp 97.7 F 01/17/25 06:00 Pulse 68 01/17/25 06:00 Resp 16 01/17/25 06:00 BP 97/59 01/17/25 06:00 Pulse Ox 99 01/17/25 06:00 O2 Del Method Room Air 01/17/25 06:00 Weight last 48 hrs Weight 73.119 kg Data NPU 01/13/25 07:27 01/13/25 07:27 Micro: Microbiology 01/11/25 09:35 Blood Culture - Final Blood NO GROWTH AFTER 5 DAYS 01/11/25 09:33 Blood Culture - Final Blood NO GROWTH AFTER 5 DAYS Microbiology 01/11/25 09:35 Blood Blood Culture - Final NO GROWTH AFTER 5 DAYS 01/11/25 09:33 Blood Blood Culture - Final NO GROWTH AFTER 5 DAYS A&P Assessment and plan 1. MDD (major depressive disorder), recurrent severe, without psychosis: 2. Intentional overdose: 3. Borderline personality disorder: 4. PTSD (post-traumatic stress disorder): 5. Suicide attempt: Plan: 19-year-old male now in NPU admitted once again to hospital after an overdose 1 week after being discharged for a significant overdose with continued suicidal ideation. He has a history of poor impulse control and chronic feelings of abandonment. He appears to have some symptoms suggestive of Reactive Attachment disorder as well. 1.? Engage patient in individual milieu and group therapy. #2?? Recommend sober living treatment at the highest level of care to which the patient is willing to commit. Hold outpatient medications for now. #3??? Continue Depakote 500mg ER in am. Patient SSRI remains on hold for now. ?? Initiate Invega 3 mg p.o. daily. #4?? continue one-to-one until we feel comfortable he can contract for safety in the hospital.?Changed to every 15 minute checks for safety and evaluate for keeping that instead of the one-to-one moving forward.? #5?? Will attempt to gather collateral information. #6 21-day hold hearing today. PDMP PDMP Reviewed: Not Reviewed Involuntary Hold Information Hold Status: Legal Status: 96 Hour Hold Date/Time Hold Expires: 01/17/25 @ 00:13 Attestations NPU Medical Necessity Statement*: Inpatient psychiatric hospitalization is medically necessary and the clinically appropriate intervention at this time. Will monitor medications and make changes as indicated. His likely length of stay is 3-5 days. Coding Level of Care Code Acute Code for [facility] Fwd Diagnoses MDD (major depressive disorder), recurrent severe, without psychosis F33.2 Intentional overdose T50.902A Borderline personality disorder F60.3 PTSD (post-traumatic stress disorder) F43.10 Suicide attempt T14.91XA
[2025-01-17 14:00] VITALS: BP 153/96; PULSE 80; RESP 18; TEMP 36.5; O2SAT 98
[2025-01-17 19:57] VITALS: BP 107/71; PULSE 85; RESP 16; TEMP 36.8
--- NOTE | 2025-01-18 04:59 | PC.NURSE ---
SHIFT SUMMARY PATIENT HAS RESTED THIS NIGHT WITHOUT S/S OF DISTRESS NOTED.
[2025-01-18 06:00] VITALS: BP 98/69; PULSE 76; RESP 16; TEMP 36.5; O2SAT 99
[2025-01-18] MEDS: divalproex ER 500 mg Tablet (24H) PO (08:35)
[2025-01-18 12:55] VITALS: BP 100/71; PULSE 96; RESP 20; TEMP 36.6; O2SAT 100
--- NOTE | 2025-01-18 19:31 | P.NPUPN_ITS ---
Subjective NPU 2 Subjective: Patient presented today reporting that he is feeling a little better. He reports the last 2 mornings he has awoken with no sense of urgency towards hurting himself. He is feeling that he is more optimistic that things can and might improve. He reports he is tolerating the medications without any major issue. We discussed the possibility of discharge later this week and he denied any side effects to his medications. Mental Status Exam 2 MSE Comments: This is a tall slender white male in hospital scrubs with disheveled appearance and poor eye contact. There was no evidence of any abnormal involuntary motor movements except for mild psychomotor agitation. He was cooperative with exam in mild distress. Speech was more normal rate and volume. Mood was endorsed as a little better. His affect was congruent and less irritable. His thought process was linear and organized. Thought content patient denied suicidal or homicidal ideation. There were no delusions reported or noted. He denied any auditory or visual hallucinations. Attention and concentration were intact and memory appeared reliable but none were formally tested. He is alert and oriented x 3. Insight was is improving. His judgment and impulse control are limited but improving. Vitals/I&O/Wt Last Vital Signs Temp 98.1 F 01/18/25 19:48 Pulse 97 01/18/25 19:48 Resp 16 01/18/25 19:48 BP 138/85 01/18/25 19:48 Pulse Ox 97 01/18/25 19:48 O2 Del Method Room Air 01/18/25 19:48 Data NPU 01/13/25 07:27 01/13/25 07:27 A&P Assessment and plan 1. MDD (major depressive disorder), recurrent severe, without psychosis: 2. Intentional overdose: 3. Borderline personality disorder: 4. PTSD (post-traumatic stress disorder): 5. Suicide attempt: Plan: 19-year-old male now in NPU admitted once again to hospital after an overdose 1 week after being discharged for a significant overdose with continued suicidal ideation. He has a history of poor impulse control and chronic feelings of abandonment. He appears to have some symptoms suggestive of Reactive Attachment disorder as well. 1.? Engage patient in individual milieu and group therapy. #2?? Recommend sober living treatment at the highest level of care to which the patient is willing to commit. Hold outpatient medications for now. #3??? Continue Depakote 500mg ER in am. Patient SSRI remains on hold for now. ?? Initiate Invega 3 mg p.o. daily. #4?? continue one-to-one until we feel comfortable he can contract for safety in the hospital.???Changed to every 15 minute checks for safety and evaluate for keeping that instead of the one-to-one moving forward.? #5?? Will attempt to gather collateral information. #6 21-day hold hearing today. PDMP PDMP Reviewed: Not Reviewed Involuntary Hold Information 2 Hold Status: Legal Status: 96 Hour Hold Date/Time Hold Expires: 01/17/25 @ 00:13 Attestations NPU 2 Medical Necessity Statement*: Inpatient psychiatric hospitalization is medically necessary and the clinically appropriate intervention at this time. Will monitor medications and make changes as indicated. His likely length of stay is 2-4 days. Coding Level of Care Code Acute Code for [facility] Fwd Diagnoses MDD (major depressive disorder), recurrent severe, without psychosis F33.2 Intentional overdose T50.902A Borderline personality disorder F60.3 PTSD (post-traumatic stress disorder) F43.10 Suicide attempt T14.91XA
[2025-01-18 19:48] VITALS: BP 138/85; PULSE 97; RESP 16; TEMP 36.7; O2SAT 97
[2025-01-19 06:00] VITALS: BP 100/65; PULSE 81; RESP 16; TEMP 36.4; O2SAT 97
--- NOTE | 2025-01-19 06:19 | PC.NURSE ---
pt counselor pt would like to speak to counselor.
[2025-01-19] MEDS: divalproex ER 500 mg Tablet (24H) PO (08:02)
--- NOTE | 2025-01-19 08:23 | P.NPUPN_ITS ---
Subjective NPU 2 Subjective: Patient presented today reporting that things are going fine. He is hopeful for discharge by Friday which is his 20st birthday. We discussed the importance of him continuing to stay the course and that we would review discharge each day moving forward. He reports he is doing well with the medication and denied any other issues. He denied any side effects to his medications. Mental Status Exam 2 MSE Comments: This is a tall slender white male in hospital scrubs with disheveled appearance and poor eye contact. There was no evidence of any abnormal involuntary motor movements except for mild psychomotor agitation. He was cooperative with exam in mild distress. Speech was more normal rate and volume. Mood was endorsed as better. His affect was congruent and less irritable. His thought process was linear and organized. Thought content patient denied suicidal or homicidal ideation. There were no delusions reported or noted. He denied any auditory or visual hallucinations. Attention and concentration were intact and memory appeared reliable but none were formally tested. He is alert and oriented x 3. Insight was is improving. His judgment and impulse control are limited but improving. Vitals/I&O/Wt Last Vital Signs Temp 97.6 F 01/19/25 06:00 Pulse 81 01/19/25 06:00 Resp 18 01/19/25 06:00 BP 100/65 01/19/25 06:00 Pulse Ox 97 01/19/25 06:00 O2 Del Method Room Air 01/19/25 06:00 Data NPU 01/13/25 07:27 01/13/25 07:27 A&P Assessment and plan 1. MDD (major depressive disorder), recurrent severe, without psychosis: 2. Intentional overdose: 3. Borderline personality disorder: 4. PTSD (post-traumatic stress disorder): 5. Suicide attempt: Plan: 19-year-old male now in NPU admitted once again to hospital after an overdose 1 week after being discharged for a significant overdose with continued suicidal ideation. He has a history of poor impulse control and chronic feelings of abandonment. He appears to have some symptoms suggestive of Reactive Attachment disorder as well. 1.? Engage patient in individual milieu and group therapy. #2?? Recommend sober living treatment at the highest level of care to which the patient is willing to commit. Hold outpatient medications for now. #3??? Continue Depakote 500mg ER in am. Patient SSRI remains on hold for now. ?? Initiate Invega 3 mg p.o. daily. #4?? continue one-to-one until we feel comfortable he can contract for safety in the hospital.???Changed to every 15 minute checks for safety and evaluate for keeping that instead of the one-to-one moving forward.? #5?? Will attempt to gather collateral information. #6 21-day hold hearing today. PDMP PDMP Reviewed: Not Reviewed Involuntary Hold Information 2 Hold Status: Legal Status: 96 Hour Hold Date/Time Hold Expires: 01/17/25 @ 00:13 Attestations NPU 2 Medical Necessity Statement*: Inpatient psychiatric hospitalization is medically necessary and the clinically appropriate intervention at this time. Will monitor medications and make changes as indicated. His likely length of stay is 2 to 3 days. Coding Level of Care Code Acute Code for [facility] Fwd Diagnoses MDD (major depressive disorder), recurrent severe, without psychosis F33.2 Intentional overdose T50.902A Borderline personality disorder F60.3 PTSD (post-traumatic stress disorder) F43.10 Suicide attempt T14.91XA
--- NOTE | 2025-01-19 08:41 | NUR.SHIFT ---
Pt states that he slept decent last night. No anxiety or depression noted this morning. No reports of SI/HI or hallucinations. No pain reported. Pt is supposed to be having [facility] coming over to speak with him today. His up for a shower this morning and eating breakfast.
[2025-01-19 13:21] VITALS: BP 119/83; PULSE 88; RESP 16; TEMP 36.8; O2SAT 99
[2025-01-19 21:11] VITALS: BP 134/87; PULSE 86; RESP 18; TEMP 36.6; O2SAT 100
[2025-01-20 06:00] VITALS: BP 104/60; PULSE 62; RESP 18; TEMP 36.4; O2SAT 98
[2025-01-20] MEDS: divalproex ER 500 mg Tablet (24H) PO (08:50)
[2025-01-20 14:00] VITALS: BP 134/73; PULSE 93; RESP 18; TEMP 36.7; O2SAT 100
--- NOTE | 2025-01-20 15:38 | W.PM.NPUPNS ---
Subjective NPU Subjective: Patient presented today reporting that things are all right. We discussed the fact that we had spoken with his mother as well as his outpatient therapist and both of them expressed significant concern about the consideration of discharge on his birthday tomorrow. They expressed concerns about him as it is his 20st birthday as well as continued concerns about him acting on threats to harm himself. We discussed the fact that our own trepidation in addition to their thoughts is likely pushing back his discharge to next week. He handled the information without loss of control and denied any side effects to the medication. Mental Status Exam MSE Comments: This is a tall slender white male in hospital scrubs with disheveled appearance and poor eye contact. There was no evidence of any abnormal involuntary motor movements except for mild psychomotor agitation. He was cooperative with exam in mild distress. Speech was more normal rate and volume. Mood was endorsed as better. His affect was congruent and less irritable. His thought process was linear and organized. Thought content patient denied suicidal or homicidal ideation. There were no delusions reported or noted. He denied any auditory or visual hallucinations. Attention and concentration were intact and memory appeared reliable but none were formally tested. He is alert and oriented x 3. Insight was is improving. His judgment and impulse control are limited but improving. Vitals/I&O/Wt Last Vital Signs Temp 98.0 F 01/20/25 14:00 Pulse 93 01/20/25 14:00 Resp 18 01/20/25 14:00 BP 134/73 01/20/25 14:00 Pulse Ox 100 01/20/25 14:00 O2 Del Method Room Air 01/20/25 06:00 Data NPU 01/13/25 07:27 01/13/25 07:27 A&P Assessment and plan 1. MDD (major depressive disorder), recurrent severe, without psychosis: 2. Intentional overdose: 3. Borderline personality disorder: 4. PTSD (post-traumatic stress disorder): 5. Suicide attempt: Plan: 19-year-old male now in NPU admitted once again to hospital after an overdose 1 week after being discharged for a significant overdose with continued suicidal ideation. He has a history of poor impulse control and chronic feelings of abandonment. He appears to have some symptoms suggestive of Reactive Attachment disorder as well. 1.? Engage patient in individual milieu and group therapy. #2?? Recommend sober living treatment at the highest level of care to which the patient is willing to commit. Hold outpatient medications for now. #3??? Continue Depakote 500mg ER in am. Patient SSRI remains on hold for now. ?? Initiate Invega 3 mg p.o. daily. #4?? continue one-to-one until we feel comfortable he can contract for safety in the hospital.???Changed to every 15 minute checks for safety and evaluate for keeping that instead of the one-to-one moving forward.? #5?? Will attempt to gather collateral information. #6 21-day hold hearing today. PDMP PDMP Reviewed: Not Reviewed Involuntary Hold Information Hold Status: Legal Status: 96 Hour Hold Date/Time Hold Expires: 01/17/25 @ 00:13 Attestations NPU Medical Necessity Statement*: Inpatient psychiatric hospitalization is medically necessary and the clinically appropriate intervention at this time. Will monitor medications and make changes as indicated. His likely length of stay is 4-6 days. Coding Level of Care Code Acute Code for [facility] Fwd Diagnoses MDD (major depressive disorder), recurrent severe, without psychosis F33.2 Intentional overdose T50.902A Borderline personality disorder F60.3 PTSD (post-traumatic stress disorder) F43.10 Suicide attempt T14.91XA
[2025-01-20 20:11] VITALS: BP 127/84; PULSE 91; RESP 19; TEMP 36.9; O2SAT 99
[2025-01-21 06:00] VITALS: BP 97/57; PULSE 78; RESP 17; TEMP 36.9; O2SAT 98
[2025-01-21] MEDS: divalproex ER 500 mg Tablet (24H) PO (08:06)
[2025-01-21 14:00] VITALS: BP 135/89; PULSE 80; RESP 17; O2SAT 100
--- NOTE | 2025-01-21 16:38 | P.NPUPN_ITS ---
Subjective NPU 2 Subjective: Patient presented today reporting that he is feeling better overall and feeling. 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 He was able to contract for safety outside of the hospital. He endorsed a plan to attend his weekly therapy and start working on himself. We discussed the plan for discharge in the morning which made him quite happy reporting he is starting to work and has a plan to work tomorrow. He denied any side effects to the medication. Mental Status Exam 2 MSE Comments: This is a tall slender white male in hospital scrubs with appropriate grooming and eye contact. There was no evidence of any abnormal involuntary motor movements. He was cooperative with exam in mild distress. Speech was more normal rate and volume. Mood was endorsed as better. His affect was congruent. His thought process was linear and organized. Thought content patient denied suicidal or homicidal ideation. There were no delusions reported or noted. He denied any auditory or visual hallucinations. Attention and concentration were intact and memory appeared reliable but none were formally tested. He is alert and oriented x 3. Insight was is improving. His judgment and impulse control are limited but improving. Vitals/I&O/Wt Last Vital Signs Temp 98.4 F 01/21/25 06:00 Pulse 80 01/21/25 14:00 Resp 17 01/21/25 14:00 BP 135/89 01/21/25 14:00 Pulse Ox 100 01/21/25 14:00 O2 Del Method Room Air 01/21/25 06:00 Data NPU 01/13/25 07:27 01/13/25 07:27 A&P Assessment and plan 1. MDD (major depressive disorder), recurrent severe, without psychosis: 2. Intentional overdose: 3. Borderline personality disorder: 4. PTSD (post-traumatic stress disorder): 5. Suicide attempt: Plan: 19-year-old male now in NPU admitted once again to hospital after an overdose 1 week after being discharged for a significant overdose with continued suicidal ideation. He has a history of poor impulse control and chronic feelings of abandonment. He appears to have some symptoms suggestive of Reactive Attachment disorder as well. 1.? Engage patient in individual milieu and group therapy. #2?? Recommend sober living treatment at the highest level of care to which the patient is willing to commit. Hold outpatient medications for now. #3??? Continue Depakote 500mg ER in am. Patient SSRI remains on hold for now. ?? Initiate Invega 3 mg p.o. daily. #4?? continue one-to-one until we feel comfortable he can contract for safety in the hospital.???Changed to every 15 minute checks for safety and evaluate for keeping that instead of the one-to-one moving forward.? #5?? Will attempt to gather collateral information. Spoke with his mother and treatment team spoke to the therapist and we agreed that discharging him on his birthday was problematic but tentative plan for discharge tomorrow. #6 21-day hold hearing 01/17/2025. He was placed on 21-day hold. PDMP PDMP Reviewed: Not Reviewed Involuntary Hold Information 2 Hold Status: Legal Status: 21 Day Hold Date/Time Hold Expires: 21 filed Attestations NPU 2 Medical Necessity Statement*: Inpatient psychiatric hospitalization is medically necessary and the clinically appropriate intervention at this time. Will monitor medications and make changes as indicated. His likely length of stay is 1 day. Coding Level of Care Code Acute Code for g Fwd Diagnoses MDD (major depressive disorder), recurrent severe, without psychosis F33.2 Intentional overdose T50.902A Borderline personality disorder F60.3 PTSD (post-traumatic stress disorder) F43.10 Suicide attempt T14.91XA
[2025-01-21 20:29] VITALS: BP 121/70; PULSE 93; RESP 18; TEMP 36.8; O2SAT 99
[2025-01-22 06:00] VITALS: BP 128/68; PULSE 80; RESP 17; TEMP 36.6; O2SAT 100
[2025-01-22 06:30] VITALS: BP 128/68; PULSE 80; RESP 17; TEMP 36.6; O2SAT 100
[2025-01-22] MEDS: divalproex ER 500 mg Tablet (24H) PO (08:06)
[2025-01-22 08:14] VITALS: BP 142/86; PULSE 115; RESP 17; O2SAT 99
--- NOTE | 2025-01-22 15:08 | PC.NURSE ---
Propranolol 20 mg po TID #21 and Depakote ER 500 mg po daily #[address] [facility] [place] with pharmacist Sen taking the order.
== END 2025-01-22 08:28 | disposition home or self-care (01) | DRG 918 ==
LOC: ER 01-11 00:02 → ICU 01-11 01:59 → NP 01-12 10:35
PROVIDERS: Admitting Provider Internal Medicine; Emergency Provider Family Medicine; PCP Family Medicine; Visit Provider Student in an Organized Health Care Education/Training Program
DX: T42.6X2A Poisoning by other antiepileptic and sedative-hypnotic drugs, intentional self-harm, initial encounter (principal); F33.2 Major depressive disorder, recurrent severe without psychotic features; T43.222A Poisoning by selective serotonin reuptake inhibitors, intentional self-harm, initial encounter; T44.7X2A Poisoning by beta-adrenoreceptor antagonists, intentional self-harm, initial encounter; F43.10 Post-traumatic stress disorder, unspecified; D72.829 Elevated white blood cell count, unspecified; Z91.51 Personal history of suicidal behavior; F12.90 Cannabis use, unspecified, uncomplicated; Z62.812 Personal history of neglect in childhood; Z62.810 Personal history of physical and sexual abuse in childhood; F41.9 Anxiety disorder, unspecified; F60.3 Borderline personality disorder; F63.9 Impulse disorder, unspecified; R33.9 Retention of urine, unspecified; F94.1 Reactive attachment disorder of childhood
CPT/HCPCS: 36415; 51798; 71045; 80053; 80164; 80306; 80307; 81001; 83735; 84100; 85025; 87040; 93005; 96372; 97150; 97165; 99285; J1644; J2543; J7030; J9999